=== PATIENT | male | born 1965 | race Caucasian/White ===

== ENCOUNTER 2021-09-13 10:23 | Inpatient (IN) | payer BC ==
[2021-09-13] MEDS ORDERED: ACETAMINOPHEN TAB 500 MG TAB PO STA (11:32)
[2021-09-13] MEDS ORDERED: KETOROLAC 15 MG/ML 1 ML VIAL IVP STA (11:32)
[2021-09-13] MEDS ORDERED: SODIUM CHLORIDE 0.9% 500 ML 500 ML IV STA (11:33)
[2021-09-13 12:23] LABS: Basophils # (A) 0.1 k/uL (0-0.2); Basophils % (A) 0 %; Eosinophils # (A) 0.1 k/uL (0-0.7); Eosinophils % (A) 1 %; HCT 52.7 % (39.0-53.0); Lymphocytes % (A) 5 %; MCH 28.2 pg (25.0-35.0); MCHC 32.2 g/dL (31.0-37.0); MCV 87.5 fL (80.0-100.0); Mean Platelet Volume 9.3; Monocytes # (A) 1.1 k/uL (0-1.0); Monocytes % (A) 6 %; Neutrophils # (A) 16.4 k/uL (1.3-7.7); Neutrophils % (A) 87 %; Platelet Count 199 k/uL (150-450); RBC 6.02 m/uL (4.30-5.90); RDW 12.9 % (11.5-15.5); WBC 18.8 k/uL (3.8-10.6)
[2021-09-13 12:43] LABS: ALT 13 U/L (4-49); AST 24 U/L (17-59); African American GFR (CKD) >90 (>60 ml/min/1.73 sqM); Albumin 4.1 g/dL (3.5-5.0); Alkaline Phosphatase 95 U/L (38-126); Anion Gap 19 mmol/L; Blood Urea Nitrogen 25 mg/dL (9-20); Calcium 9.5 mg/dL (8.4-10.2); Carbon Dioxide 14 mmol/L (22-30); Chloride 100 mmol/L (98-107); Glucose 260 mg/dL (74-99); Non-African American GFR(CKD) >90 (>60 ml/min/1.73 sqM); Potassium 4.9 mmol/L (3.5-5.1); Sodium 133 mmol/L (137-145); Total Bilirubin 0.7 mg/dL (0.2-1.3); Total Protein 7.7 g/dL (6.3-8.2)
[2021-09-13] MEDS ORDERED: VANCOMYCIN IV PER PHARMACY 1 EACH MISC MISCELLANE PRN (12:48)
[2021-09-13] MEDS ORDERED: cefTRIAXone IN SWFI 1,000 MG/10 ML SYRINGE IVP STA (12:48)
--- NOTE | 2021-09-13 12:48 | ED ---
Wound/Laceration HPI - General Chief Complaint: Wound/Laceration Stated Complaint: lt foot diabetic infection Time Seen by Provider: 09/13/21 11:11 Source: patient, RN notes reviewed Mode of arrival: wheelchair Limitations: no limitations, physical limitation - History of Present Illness Initial Comments: Patient is a 56-year-old male with history of diabetes, presenting to the emergency Department with complaints of a worsening wound on his left foot. He states about a week ago he noticed a small blood blister on the lateral aspect of his left foot, it did start to drain, he did not think anything about this. He does have diabetic neuropathy so usually cannot feel much in his feet. He states yesterday he noticed some pain increasing of the left foot, he went to urgent care who did start him on 2 separate antibiotics. They told him if his symptoms worsen to go into the ER. Patient states he woke up this morning feeling way worse, fatigue, felt feverish and the pain has been increasing in his left foot and he is now feeling pain all the way up his left leg. They did do an x-ray yesterday at urgent care, no fractures, no signs of osteomyelitis. Patient states he's never had an infection like this before. Patient does admit to some mild nausea but no vomiting, no chest pain or short of breath. He did not take anything for the fever today. He has no further complaints. Patient initial temperature is 98.1 however upon recheck it was 99.6. His pulse was 128, rest of vitals normal. - Related Data Allergies Allergy/AdvReac Type Severity Reaction Status Date / Time No Known Allergies Allergy Verified 09/13/21 11:08 Review of Systems ROS Statement: Those systems with pertinent positive or pertinent negative responses have been documented in the HPI. ROS Other: All systems not noted in ROS Statement are negative. Past Medical History Past Medical History: Diabetes Mellitus Additional Past Medical History / Comment(s): buldging disc to back History of Any Multi-Drug Resistant Organisms: None Reported Past Surgical History: No Surgical Hx Reported Past Psychological History: No Psychological Hx Reported Smoking Status: Never smoker Past Alcohol Use History: None Reported Past Drug Use History: None Reported General Exam - General Exam Comments Initial Comments: GENERAL: Patient is well-developed and well-nourished. Patient is nontoxic and in no acute distress. HEAD: Atraumatic, normocephalic. EYES: Pupils equal round and reactive to light, extraocular movements intact, sclera anicteric, conjunctiva are normal. Eyelids were unremarkable. ENT: Nares patent, oropharynx clear without exudates. Moist mucous membranes. NECK: Normal range of motion, supple without lymphadenopathy or JVD. LUNGS: Unlabored respirations. Breath sounds clear to auscultation bilaterally and equal. No wheezes rales or rhonchi. HEART: Tachycardia rate and rhythm without murmurs, rubs or gallops. ABDOMEN: Soft, nontender, normoactive bowel sounds. No guarding, no rebound. No masses appreciated. MUSCULOSKELETAL: Patient has 60 pain with palpation of the left foot and into the left ankle. He does have adequate range of motion. He is neurovascular intact of bilateral lower extremities. He has 2+ pitting edema on the left leg compared to the right. No clubbing or cyanosis. NEUROLOGICAL: Patient is alert and oriented x 3. Motor and sensory are also intact. Cranial nerves II through XII grossly intact. Symmetrical smile. Normal speech, normal gait. PSYCH: Normal mood, normal affect. SKIN: Warm, Dry, normal turgor. Patient has an approximate 1 cm ulcer on the lateral left foot, there is a strong odor present, he has spreading erythema of the left foot up to the left ankle and into the left lower leg. He does have 2+ pitting edema. Limitations: physical limitation Course Vital Signs 09/13/21 11:05 Temperature 98.1 F Pulse Rate 128 H Respiratory 18 Rate Blood Pressure 144/83 O2 Sat by Pulse 95 Oximetry Medical Decision Making - Medical Decision Making Patient is a 56-year-old male with history of diabetes presenting with a worsening wound on his left foot for the past week. Yesterday he did go to urgent care, x-ray reveals no fracture, no signs of osteomyelitis. He did arrive slightly febrile and tachycardia today at 128. Patient has significant cellulitis of the left foot extending up to the left ankle and left lower leg. He does have swelling compared to the right leg, his white count is 18.8, crp 23. Patient will be admitted for cellulitis, sepsis. Blood cultures are pe nding, did start him on Rocephin and vancomycin. Patient accepted by Dr. Patterson, with consult to ID. Case discussed with Dr. Yancey. - Lab Data Result diagrams: 09/13/21 12:06 09/13/21 12:06 Lab Results 09/13/21 09/13/21 Range/Units 12:06 12:06 WBC 18.8 H (3.8-10.6) k/uL RBC 6.02 H (4.30-5.90) m/uL Hgb 17.0 (13.0-17.5) gm/dL Hct 52.7 (39.0-53.0) % MCV 87.5 (80.0-100.0) fL MCH 28.2 (25.0-35.0) pg MCHC 32.2 (31.0-37.0) g/dL RDW 12.9 (11.5-15.5) % Plt Count 199 (150-450) k/uL MPV 9.3 Neutrophils % 87 % Lymphocytes % 5 % Monocytes % 6 % Eosinophils % 1 % Basophils % 0 % Neutrophils # 16.4 H (1.3-7.7) k/uL Lymphocytes # 1.0 (1.0-4.8) k/uL Monocytes # 1.1 H (0-1.0) k/uL Eosinophils # 0.1 (0-0.7) k/uL Basophils # 0.1 (0-0.2) k/uL Sodium 133 L (137-145) mmol/L Potassium 4.9 (3.5-5.1) mmol/L Chloride 100 (98-107) mmol/L Carbon Dioxide 14 L (22-30) mmol/L Anion Gap 19 mmol/L BUN 25 H (9-20) mg/dL Creatinine 0.87 (0.66-1.25) mg/dL Est GFR (CKD-EPI)AfAm >90 (>60 ml/min/1.73 sqM) Est GFR (CKD-EPI)NonAf >90 (>60 ml/min/1.73 sqM) Glucose 260 H (74-99) mg/dL Calcium 9.5 (8.4-10.2) mg/dL Total Bilirubin 0.7 (0.2-1.3) mg/dL AST 24 (17-59) U/L ALT 13 (4-49) U/L Alkaline Phosphatase 95 (38-126) U/L C-Reactive Protein 23.8 H (<1.0) mg/dL Total Protein 7.7 (6.3-8.2) g/dL Albumin 4.1 (3.5-5.0) g/dL Disposition Clinical Impression: Cellulitis of left leg, Ulcer of left foot, Sepsis Disposition: ADMITTED IP TO THIS HOSP Condition: Stable Referrals: Fidencio Sepulveda DO [Primary Care Provider] - 1-2 days Decision Date: 09/13/21 Decision Time: 13:16
[2021-09-13 12:56] LABS: C Reactive Protein 23.8 mg/dL (<1.0)
[2021-09-13] MEDS ORDERED: NALOXONE 0.4 MG/ML 1 ML VIAL IV PRN ×2 (13:12→15:06)
[2021-09-13] MEDS ORDERED: KETOROLAC 15 MG/ML 1 ML VIAL IVP PRN (13:12)
[2021-09-13] MEDS ORDERED: ACETAMINOPHEN TAB 325 MG TAB PO PRN (13:12)
[2021-09-13] MEDS ORDERED: IBUPROFEN 400 MG TAB PO PRN (13:12)
[2021-09-13] MEDS ORDERED: ONDANSETRON 4 MG/2 ML VIAL IVP PRN (13:12)
[2021-09-13] MEDS ORDERED: VANCOMYCIN 1,750 MG in SODIUM CHLORIDE 0.9% 500 ML 500 ML IVPB ONE (13:30)
[2021-09-13] MEDS: MORPHINE SULFATE 4 MG/ML SYRINGE IV PRN ×2 (13:44→19:48)
[2021-09-13] MEDS: SODIUM CHLORIDE 0.9% 1,000 ML IV SCH ×2 (14:32→19:56)
[2021-09-13 15:04] LABS: Erythrocyte Sedimentation Rate 53 mm/hr (0-15)
[2021-09-13] MEDS ORDERED: INDOMETHACIN 25 MG CAP PO PRN (15:59)
[2021-09-13] MEDS ORDERED: LIDOCAINE 5% PATCH TOPICAL PRN (15:59)
[2021-09-13] MEDS: PREGABALIN 75 MG CAP PO SCH ×2 (17:11→21:43)
[2021-09-13 17:15] LABS: Glucose,Whole Blood 161 mg/dL (75-99)
[2021-09-13] MEDS: INSULIN ASPART (NovoLOG) 100 UNIT/ML VIAL SQ SCH ×2 (17:55→21:43)
[2021-09-13] MEDS: metFORMIN 500 MG TAB PO SCH (19:55)
[2021-09-13 20:26] LABS: Glucose,Whole Blood 267 mg/dL (75-99)
--- NOTE | 2021-09-13 20:48 | P.HPIM ---
History of Present Illness H&P Date: 09/13/21 Chief Complaint: Left foot abscess This is a 56-year-old patient who follows with Dr. Sepulveda. No dysuria diabetes, herniated L3-L4 disc, peripheral neuropathy. Patient with tenderness ago when he got out of the shower he noted a blood blister. He felt it could be from 8 help somebody move furniture. Subsequently drained. 4 days ago he put on a[employer]isual [employer] shopping. And suddenly he developed severe pain in the foot. He decided to come into the urgent care yesterday. Was given, couple antibiotics. He took it for about 2 doses. X-ray done in the urgent care did not reveal any bone involvement. He started having chills. Finding decided to come in. He has significantly decreased sensation in the foot. Pain has been present in the foot now for last few days. Review of systems: GEN.: Chills EYES: None HEENT: None NECK: None RESPIRATORY: None CARDIOVASCULAR: None GASTROINTESTINAL: None GENITOURINARY: None MUSCULOSKELETAL: As above LYMPHATICS: None HEMATOLOGICAL: None PSYCHIATRY: None NEUROLOGICAL: Numbness in the feet Past medical history to include: Diabetes, peripheral neuropathy, L3-L4 herniated disc Social history: Lives alone with 2 daughters. Does not smoke or drink alcohol. Family history: Reviewed, noncontributory to presentation Physical examination: VITAL SIGNS: 98.2, 92, 16, 112 x 56, 93% on room air GENERAL: BMI 31.2, laying in bed, awake comfortable. EYES: Pupils equal. Conjunctiva normal. HEENT: External appearance of nose and ears normal, oral cavity grossly normal. NECK: JVD not raised; masses not palpable. HEART: First and second heart sounds are normal; no edema. LUNGS: Respiratory rate normal; clear to auscultation. ABDOMEN: Soft, nontender, liver spleen not palpable, no masses palpable. PSYCH: Alert and oriented x3; mood and affect normal. NEUROLOGICAL: Cranial nerves grossly intact; no facial asymmetry, power grossly intact. Decreased sensation distally. EXTREMITIES: Left foot swollen on the lateral side. Has a callus. Blood blister on the top of the foot. Dorsalis pedis palpable LYMPHATICS: No lymph nodes palpable in the axilla and neck INVESTIGATIONS, reviewed in the clinical context: White count 18.8 hemoglobin 17 platelets 199 sodium 133 potassium 4.9. 25 creatinine 0.87 bicarbonate 14 blood glucose 260 CRP 23.8 Coronavirus [PCR]: Not detected Assessment and plan: -Left foot abscess likely from infected callus, secondary to diabetes. Patient has palpable dorsalis pedis. Vascular Dr. Treadwell has been consulted. For I&D. I ID consulted. On IV vancomycin -Diabetes mellitus type 2, uncontrolled with hypoglycemia Oral hypoglycemic resume. Follow Accu-Cheks. -Diabetic peripheral neuropathy -Chronic lumbar L3-L4 herniated disc Pain control as needed Home medications resumed. Follow Accu-Cheks. IV vancomycin. Consultation to vascular and ID.. Lovenox for DVT prophylaxis. Patient will be nothing by mouth after midnight for I&D Given the complexity and severity of patient's condition expect the patient to be in the hospital at least for 2 overnights Past Medical History Past Medical History: Diabetes Mellitus Additional Past Medical History / Comment(s): L3-4-5 Bulging discs, neuropathy History of Any Multi-Drug Resistant Organisms: None Reported Past Surgical History: No Surgical Hx Reported Past Psychological History: No Psychological Hx Reported Smoking Status: Never smoker Past Alcohol Use History: None Reported Past Drug Use History: None Reported Medications and Allergies Home Medications Medication Instructions Recorded Confirmed Type Amoxic-Pot Clav 875-125Mg 1 tab PO BID 09/13/21 09/13/21 History [Augmentin 875-125] Ciprofloxacin HCl [Cipro] 500 mg PO BID 09/13/21 09/13/21 History Empagliflozin [Jardiance] 10 mg PO DAILY 09/13/21 09/13/21 History HYDROcodone/APAP 10-325MG [[place] 1 tab PO DAILY PRN 09/13/21 09/13/21 History 10-325] Indomethacin [Indocin] 50 mg PO BID PRN 09/13/21 09/13/21 History Lidocaine 5% Patch [Lidoderm] 2 patch TRANSDERM DAILY PRN 09/13/21 09/13/21 History Lisinopril [Prinivil] 10 mg PO DAILY 09/13/21 09/13/21 History Pregabalin [Lyrica] 150 mg PO TID 09/13/21 09/13/21 History metFORMIN HCL [Glucophage] 1,000 mg PO BID 09/13/21 09/13/21 History sitaGLIPtin [Januvia] 100 mg PO DAILY 09/13/21 09/13/21 History traMADol HCL 100 mg PO TID 09/13/21 09/13/21 History Allergies Allergy/AdvReac Type Severity Reaction Status Date / Time No Known Allergies Allergy Verified 09/13/21 13:29 Physical Exam Vitals: Vital Signs Temp Pulse Pulse Resp BP BP Pulse Ox 09/13/21 20:00 98.1 F 92 16 112/66 93 L 09/13/21 16:45 98 18 09/13/21 16:08 98.2 F 98 18 122/73 97 09/13/21 14:21 98.2 F 98 18 122/73 97 09/13/21 13:17 99.6 F 09/13/21 11:05 98.1 F 128 H 18 144/83 95 Intake and Output 09/13/21 09/13/21 09/13/21 06:59 14:59 22:59 Intake Total 240 Balance 240 Intake: Oral 240 Other: Voiding Method Toilet # Voids 3 Weight 104.326 kg Results CBC & Chem 7: 09/13/21 12:06 09/13/21 12:06 Labs: Abnormal Lab Results - Last 24 Hours (Table) 09/13/21 09/13/21 09/13/21 Range/Units 12:06 12:06 17:13 WBC 18.8 H (3.8-10.6) k/uL RBC 6.02 H (4.30-5.90) m/uL Neutrophils # 16.4 H (1.3-7.7) k/uL Monocytes # 1.1 H (0-1.0) k/uL ESR 53 H (0-15) mm/hr Sodium 133 L (137-145) mmol/L Carbon Dioxide 14 L (22-30) mmol/L BUN 25 H (9-20) mg/dL Glucose 260 H (74-99) mg/dL POC Glucose (mg/dL) 161 H (75-99) mg/dL C-Reactive Protein 23.8 H (<1.0) mg/dL 09/13/21 Range/Units 20:25 WBC (3.8-10.6) k/uL RBC (4.30-5.90) m/uL Neutrophils # (1.3-7.7) k/uL Monocytes # (0-1.0) k/uL ESR (0-15) mm/hr Sodium (137-145) mmol/L Carbon Dioxide (22-30) mmol/L BUN (9-20) mg/dL Glucose (74-99) mg/dL POC Glucose (mg/dL) 267 H (75-99) mg/dL C-Reactive Protein (<1.0) mg/dL Thrombosis Risk Factor Assmnt - Choose All That Apply Each Factor Represents 1 point: Age 41-60 years Thrombosis Risk Factor Assessment Total Risk Factor Score: 1 Thrombosis Risk Factor Assessment Level: Low Risk
[2021-09-13] MEDS: VANCOMYCIN 1,750 MG in SODIUM CHLORIDE 0.9% 500 ML 500 ML IVPB SCH (21:40)
[2021-09-13] MEDS: ENOXAPARIN 40 MG/0.4 ML SYRINGE SQ SCH (21:42)
[2021-09-13] MEDS: traMADol 50 MG TAB PO SCH (21:42)
[2021-09-13] MEDS: SODIUM BICARBONATE TAB 650 MG TAB PO SCH ×2 (21:43→21:46)
[2021-09-14] MEDS: AMPICILLIN-SULBACTAM 3 GM in SODIUM CHLORIDE 0.9% 100 ML IVPB SCH ×5 (00:25→23:32)
[2021-09-14 04:31] LABS: Basophils # (A) 0.1 k/uL (0-0.2); Basophils % (A) 0 %; Eosinophils # (A) 0.1 k/uL (0-0.7); Eosinophils % (A) 0 %; HCT 48.8 % (39.0-53.0); HGB 15.8 gm/dL (13.0-17.5); Lymphocytes # (A) 1.9 k/uL (1.0-4.8); Lymphocytes % (A) 11 %; MCHC 32.4 g/dL (31.0-37.0); MCV 86.5 fL (80.0-100.0); Mean Platelet Volume 8.7; Monocytes % (A) 6 %; Neutrophils # (A) 14.1 k/uL (1.3-7.7); Neutrophils % (A) 81 %; Platelet Count 223 k/uL (150-450); RBC 5.64 m/uL (4.30-5.90); RDW 13.3 % (11.5-15.5); WBC 17.4 k/uL (3.8-10.6)
[2021-09-14 04:45] LABS: African American GFR (CKD) >90 (>60 ml/min/1.73 sqM); Anion Gap 11 mmol/L; Blood Urea Nitrogen 26 mg/dL (9-20); Calcium 8.9 mg/dL (8.4-10.2); Carbon Dioxide 22 mmol/L (22-30); Chloride 104 mmol/L (98-107); Glucose 143 mg/dL (74-99); Non-African American GFR(CKD) >90 (>60 ml/min/1.73 sqM); Potassium 4.9 mmol/L (3.5-5.1); Sodium 137 mmol/L (137-145)
[2021-09-14] MEDS: SODIUM CHLORIDE 0.9% 1,000 ML IV SCH ×3 (05:58→21:39)
--- NOTE | 2021-09-14 06:44 | P.GSCN ---
History of Present Illness History of present illness: 56-year-old gentleman who came to through the emergency room with history of marked swelling and redness and painful left foot with blister formation on the dorsal aspect for the past few days which is getting worse. Patient has a callus on the plantar aspect of the foot with fluctuation and tenderness and there are blister formation noted on the dorsal aspect of the foot and also involving the fifth toe according to patient this is progressing since yesterday patient has a discomfort and pain in the left foot. Medical history history of diabetes with neuropathy and also history of chronic back pain. On examination Neck examination neck is supple no bruit appreciated Chest clear first and second sound normal Abdomen soft nontender Vascular brachial radial femoral pulses are present dorsal pedis is palpable posterior tibial is present patient has a marked tenderness and redness noted of the left foot involving the plantar plantar and dorsal suspect the foot with fluctuation patient has a callus formation noted most selective got infected plan is excision of the callus and draining of the abscess and possible fifth toe amputation discussed in detail with the patient patient are understand and we'll proceed Past Medical History Past Medical History: Diabetes Mellitus Additional Past Medical History / Comment(s): L3-4-5 Bulging discs, neuropathy History of Any Multi-Drug Resistant Organisms: None Reported Past Surgical History: No Surgical Hx Reported Past Psychological History: No Psychological Hx Reported Smoking Status: Never smoker Past Alcohol Use History: None Reported Past Drug Use History: None Reported Medications and Allergies Home Medications Medication Instructions Recorded Confirmed Type Amoxic-Pot Clav 875-125Mg 1 tab PO BID 09/13/21 09/13/21 History [Augmentin 875-125] Ciprofloxacin HCl [Cipro] 500 mg PO BID 09/13/21 09/13/21 History Empagliflozin [Jardiance] 10 mg PO DAILY 09/13/21 09/13/21 History HYDROcodone/APAP 10-325MG [[place] 1 tab PO DAILY PRN 09/13/21 09/13/21 History 10-325] Indomethacin [Indocin] 50 mg PO BID PRN 09/13/21 09/13/21 History Lidocaine 5% Patch [Lidoderm] 2 patch TRANSDERM DAILY PRN 09/13/21 09/13/21 History Lisinopril [Prinivil] 10 mg PO DAILY 09/13/21 09/13/21 History Pregabalin [Lyrica] 150 mg PO TID 09/13/21 09/13/21 History metFORMIN HCL [Glucophage] 1,000 mg PO BID 09/13/21 09/13/21 History sitaGLIPtin [Januvia] 100 mg PO DAILY 09/13/21 09/13/21 History traMADol HCL 100 mg PO TID 09/13/21 09/13/21 History Allergies Allergy/AdvReac Type Severity Reaction Status Date / Time No Known Allergies Allergy Verified 09/13/21 13:29 Surgical - Exam Vital Signs Temp Pulse Resp BP Pulse Ox 98.1 F 128 H 18 144/83 95 09/13/21 11:05 09/13/21 11:05 09/13/21 11:05 09/13/21 11:05 09/13/21 11:05 Results - Labs 09/14/21 04:08 09/14/21 04:08 Abnormal Lab Results - Last 24 Hours (Table) 09/13/21 09/13/21 09/13/21 Range/Units 12:06 12:06 17:13 WBC 18.8 H (3.8-10.6) k/uL RBC 6.02 H (4.30-5.90) m/uL Neutrophils # 16.4 H (1.3-7.7) k/uL Monocytes # 1.1 H (0-1.0) k/uL ESR 53 H (0-15) mm/hr Sodium 133 L (137-145) mmol/L Carbon Dioxide 14 L (22-30) mmol/L BUN 25 H (9-20) mg/dL Glucose 260 H (74-99) mg/dL POC Glucose (mg/dL) 161 H (75-99) mg/dL C-Reactive Protein 23.8 H (<1.0) mg/dL 09/13/21 09/14/21 09/14/21 Range/Units 20:25 04:08 04:08 WBC 17.4 H (3.8-10.6) k/uL RBC (4.30-5.90) m/uL Neutrophils # 14.1 H (1.3-7.7) k/uL Monocytes # (0-1.0) k/uL ESR (0-15) mm/hr Sodium (137-145) mmol/L Carbon Dioxide (22-30) mmol/L BUN 26 H (9-20) mg/dL Glucose 143 H (74-99) mg/dL POC Glucose (mg/dL) 267 H (75-99) mg/dL C-Reactive Protein (<1.0) mg/dL Diabetes panel 09/13/21 09/14/21 Range/Units 12:06 04:08 Sodium 133 L 137 (137-145) mmol/L Potassium 4.9 4.9 (3.5-5.1) mmol/L Chloride 100 104 (98-107) mmol/L Carbon Dioxide 14 L 22 (22-30) mmol/L BUN 25 H 26 H (9-20) mg/dL Creatinine 0.87 0.79 (0.66-1.25) mg/dL Glucose 260 H 143 H (74-99) mg/dL Calcium 9.5 8.9 (8.4-10.2) mg/dL AST 24 (17-59) U/L ALT 13 (4-49) U/L Alkaline Phosphatase 95 (38-126) U/L Total Protein 7.7 (6.3-8.2) g/dL Albumin 4.1 (3.5-5.0) g/dL Calcium panel 09/13/21 09/14/21 Range/Units 12:06 04:08 Calcium 9.5 8.9 (8.4-10.2) mg/dL Albumin 4.1 (3.5-5.0) g/dL Pituitary panel 09/13/21 09/14/21 Range/Units 12:06 04:08 Sodium 133 L 137 (137-145) mmol/L Potassium 4.9 4.9 (3.5-5.1) mmol/L Chloride 100 104 (98-107) mmol/L Carbon Dioxide 14 L 22 (22-30) mmol/L BUN 25 H 26 H (9-20) mg/dL Creatinine 0.87 0.79 (0.66-1.25) mg/dL Glucose 260 H 143 H (74-99) mg/dL Calcium 9.5 8.9 (8.4-10.2) mg/dL Adrenal panel 09/13/21 09/14/21 Range/Units 12:06 04:08 Sodium 133 L 137 (137-145) mmol/L Potassium 4.9 4.9 (3.5-5.1) mmol/L Chloride 100 104 (98-107) mmol/L Carbon Dioxide 14 L 22 (22-30) mmol/L BUN 25 H 26 H (9-20) mg/dL Creatinine 0.87 0.79 (0.66-1.25) mg/dL Glucose 260 H 143 H (74-99) mg/dL Calcium 9.5 8.9 (8.4-10.2) mg/dL Total Bilirubin 0.7 (0.2-1.3) mg/dL AST 24 (17-59) U/L ALT 13 (4-49) U/L Alkaline Phosphatase 95 (38-126) U/L Total Protein 7.7 (6.3-8.2) g/dL Albumin 4.1 (3.5-5.0) g/dL
--- NOTE | 2021-09-14 07:19 | P.CONS ---
History of Present Illness - Reason for Consult Consult date: 09/13/21 left foot abscess Requesting physician: Tyrese Patterson - Chief Complaint left foot swelling and redness x few days - History of Present Illness History of present illness : Patient is 56-year-old male with a past medical history significant for diabetes mellitus presenting to the ER for evaluation of left foot pain swelling and redness apparently about a week ago the patient noticed a small blood blister on the lateral aspect of his left foot which subsequently started to drain and the patient did not think anything serious about it the patient did have underlying diabetic neuropathy he did not have significant swelling in the foot however yesterday the patient noticed to have increasing pain to the left foot area describing to be more of a sharp and pressure-like intensity of 5-6 out of 10 and no radiation patient was seen in the urgent care yesterday the patient started on 2 different antibiotics however the patient noticed to have worsening of swelling redness to the left foot and there is concern the patient and the patient presented to the ER on presentation to the hospital patient did have low-grade fever of 99.6 degrees form height patient did have white count of 15.8 with a left shift kidney function was normal khan PCR was negative no x-rays were done patient was started on vancomycin was admitted to the hospital infectious disease was consulted for further management of antibiotic therapy Review of system: CONSTITUTIONAL: Positive for weakness along with the fever. EYES: No complaint. ENT: No complaint. RESPIRATORY: No complaint. CARDIOVASCULAR: No complaint. GENITOURINARY: No complaint. GASTROINTESTINAL: No complaint. MUSCULOSKELETAL: As per history of present illness. INTEGUMENTARY: No complaint. PSYCHOLOGIC: No complaint. ENDOCRINE: No complaint. NEUROLOGIC: No complaint. Past medical history : Reviewed, documented below Past surgical history : Reviewed, documented below Social history: Reviewed, documented below Medications: Reviewed, as documented below EXAMINATION: Vital sigans= Reviewed and documented below GENERAL DESCRIPTION: Middle-aged male lying in bed, no distress. No tachypnea or accessory muscle of respiration use. HEENT: Shows Pallor , no scleral icterus. Oral mucous membrane is dry. NECK: Trachea central, no thyromegaly. LUNGS: Unlabored breathing. Clear to auscultation anteriorly. No wheeze or crackle. HEART: S1, S2, regular rate and rhythm. ABDOMEN: Soft, no tenderness , guarding or rigidity EXTREMITIES: Left foot dorsum area did have a swelling and redness and a small p ustule area on the plantar aspect of the left foot. SKIN: No rash, no masses palpable. NEUROLOGICAL: The patient is awake, alert, oriented x3, mood and affect normal. LABS AND RADIOLOGY: Reviewed results see below Assessment : Patient presented to hospital with extensive left diabetic foot infection failing to respond to outpatient oral biotic therapy concern for possible infected callus on the plantar aspect of the left foot with secondary cellulitis of the left foot area will cover for the polymicrobial arabella usually associated with this type of infection Plan: 1-vascular surgery consult for drainage of the abscess and deep culture both aerobic and anaerobic 2-vancomycin pharmacy to dose with a target trough of 15 while watching kidney function and Vanco trough closely. 3-Unasyn 3 g every 6 hours We will follow on clinical condition and cultures to further adjust medication if needed Thank you for this consultation we will follow the patient along with you Past Medical History Past Medical History: Diabetes Mellitus Additional Past Medical History / Comment(s): L3-4-5 Bulging discs, neuropathy History of Any Multi-Drug Resistant Organisms: None Reported Past Surgical History: No Surgical Hx Reported Past Psychological History: No Psychological Hx Reported Smoking Status: Never smoker Past Alcohol Use History: None Reported Past Drug Use History: None Reported Medications and Allergies Home Medications Medication Instructions Recorded Confirmed Type Amoxic-Pot Clav 875-125Mg 1 tab PO BID 09/13/21 09/13/21 History [Augmentin 875-125] Ciprofloxacin HCl [Cipro] 500 mg PO BID 09/13/21 09/13/21 History Empagliflozin [Jardiance] 10 mg PO DAILY 09/13/21 09/13/21 History HYDROcodone/APAP 10-325MG [[place] 1 tab PO DAILY PRN 09/13/21 09/13/21 History 10-325] Indomethacin [Indocin] 50 mg PO BID PRN 09/13/21 09/13/21 History Lidocaine 5% Patch [Lidoderm] 2 patch TRANSDERM DAILY PRN 09/13/21 09/13/21 History Lisinopril [Prinivil] 10 mg PO DAILY 09/13/21 09/13/21 History Pregabalin [Lyrica] 150 mg PO TID 09/13/21 09/13/21 History metFORMIN HCL [Glucophage] 1,000 mg PO BID 09/13/21 09/13/21 History sitaGLIPtin [Januvia] 100 mg PO DAILY 09/13/21 09/13/21 History traMADol HCL 100 mg PO TID 09/13/21 09/13/21 History Allergies Allergy/AdvReac Type Severity Reaction Status Date / Time No Known Allergies Allergy Verified 09/13/21 13:29 Physical Exam Vitals: Vital Signs Temp Pulse Pulse Resp BP BP Pulse Ox 09/13/21 16:08 98.2 F 98 18 122/73 97 09/13/21 14:21 98.2 F 98 18 122/73 97 09/13/21 13:17 99.6 F 09/13/21 11:05 98.1 F 128 H 18 144/83 95 Intake and Output 09/13/21 09/13/21 09/13/21 06:59 14:59 22:59 Other: Weight 104.326 kg Results CBC & Chem 7: 09/14/21 04:08 09/14/21 04:08 Labs: Abnormal Lab Results - Last 24 Hours (Table) 09/13/21 09/13/21 Range/Units 12:06 12:06 WBC 18.8 H (3.8-10.6) k/uL RBC 6.02 H (4.30-5.90) m/uL Neutrophils # 16.4 H (1.3-7.7) k/uL Monocytes # 1.1 H (0-1.0) k/uL ESR 53 H (0-15) mm/hr Sodium 133 L (137-145) mmol/L Carbon Dioxide 14 L (22-30) mmol/L BUN 25 H (9-20) mg/dL Glucose 260 H (74-99) mg/dL C-Reactive Protein 23.8 H (<1.0) mg/dL
[2021-09-14 07:28] LABS: Glucose,Whole Blood 107 mg/dL (75-99)
[2021-09-14] MEDS: INSULIN ASPART (NovoLOG) 100 UNIT/ML VIAL SQ SCH ×4 (07:54→21:38)
[2021-09-14] MEDS: NON FORMULARY DRUG (Empagliflozin [Jardiance] 10 MG Tablet) PO SCH (07:55)
[2021-09-14] MEDS: metFORMIN 500 MG TAB PO SCH ×2 (07:55→17:07)
[2021-09-14] MEDS: ENOXAPARIN 40 MG/0.4 ML SYRINGE SQ SCH (07:55)
[2021-09-14] MEDS: SODIUM BICARBONATE TAB 650 MG TAB PO SCH ×3 (07:56→21:35)
[2021-09-14] MEDS: LINAGLIPTIN 5 MG TABLET PO SCH (07:56)
[2021-09-14] MEDS: lisinopriL 10 MG TAB PO SCH (07:56)
[2021-09-14] MEDS: traMADol 50 MG TAB PO SCH ×3 (07:57→21:35)
[2021-09-14] MEDS: PREGABALIN 75 MG CAP PO SCH ×3 (07:57→21:35)
[2021-09-14] MEDS: VANCOMYCIN 1,750 MG in SODIUM CHLORIDE 0.9% 500 ML 500 ML IVPB SCH ×2 (07:59→20:01)
[2021-09-14 12:07] LABS: Glucose,Whole Blood 94 mg/dL (75-99)
--- NOTE | 2021-09-14 13:09 | P.PN ---
Progress Note - Text Progress Note Date: 09/14/21 Chief Complaint: Left foot abscess This is a 56-year-old patient who follows with Dr. Sepulveda. Chronic stable medical conditions include diabetes, herniated L3-L4 disc, peripheral neuropathy. 10 days ago when he got out of the shower he noted a blood blister. He felt it could be from then he help somebody move furniture. Subsequently drained. 4 days ago he put on tennis shoe and went shopping. And suddenly he developed severe pain in the left foot. He decided to come into the urgent care yesterday. Was given, couple antibiotics. He took it for about 2 doses. X-ray done in the urgent care did not reveal any bone involvement. He started having chills. Finding decided to come in. He has significantly decreased sensation in the feet. Pain has been present in the foot now for last few days. Admitted with acute cellulitis and abscess of the left foot. Possibly from infected callus. Started IV vancomycin. Vascular surgery and ID consulted. September 14: Resting in bed. Awaiting surgery this afternoon. Getting IV vancomycin. Review of systems: Was done for constitutional, cardiovascular, GI, pulmonary. relevant finding as above Active Medications Acetaminophen (Acetaminophen Tab 325 Mg Tab) 650 mg PO Q6HR PRN PRN Reason: Mild Pain or Fever > 100.5 Enoxaparin Sodium (Enoxaparin 40 Mg/0.4 Ml Syringe) 40 mg SQ DAILY [facility] Last Admin: 09/14/21 07:55 Dose: Not Given Documented by: Vancomycin HCl 1,750 mg/ (Sodium Chloride) 500 mls @ 167 mls/hr IVPB Q12HR [facility] Last Admin: 09/14/21 07:59 Dose: 167 mls/hr Documented by: Sodium Chloride (Saline 0.9%) 1,000 mls @ 130 mls/hr IV .Q7H42M [facility] Last Admin: 09/14/21 05:58 Dose: 130 mls/hr Documented by: Ampicillin Sodium/Sulbactam (Sodium 3 gm/ Sodium Chloride) 100 mls @ 200 mls/hr IVPB Q6HR [facility] Last Admin: 09/14/21 05:58 Dose: 200 mls/hr Documented by: Ibuprofen (Ibuprofen 400 Mg Tab) 400 mg PO Q6HR PRN PRN Reason: Mild Pain or Fever > 100.5 Indomethacin (Indomethacin 25 Mg Cap) 50 mg PO BID PRN PRN Reason: gout Insulin Aspart (Insulin Aspart (Novolog) 100 Unit/Ml Vial) 0 unit SQ ACHS [facility]; Protocol Last Admin: 09/14/21 07:54 Dose: Not Given Documented by: Ketorolac Tromethamine (Ketorolac 15 Mg/Ml 1 Ml Vial) 15 mg IVP Q6HR PRN PRN Reason: Moderate Pain Stop: 09/16/21 13:14 Linagliptin (Linagliptin 5 Mg Tablet) 5 mg PO DAILY [facility] Last Admin: 09/14/21 07:56 Dose: Not Given Documented by: Lisinopril (Lisinopril 10 Mg Tab) 10 mg PO DAILY [facility] Last Admin: 09/14/21 07:56 Dose: Not Given Documented by: Metformin HCl (Metformin 500 Mg Tab) 1,000 mg PO BID-W/MEALS [facility] Last Admin: 09/14/21 07:55 Dose: Not Given Documented by: Miscellaneous Information (Vancomycin Trough Due 1 Each Misc) 0 each MISCELLANE DIRECTED ONE Stop: 09/15/21 08:01 Morphine Sulfate (Morphine Sulfate 4 Mg/Ml Syringe) 4 mg IV Q4HR PRN PRN Reason: Severe Pain Last Admin: 09/13/21 19:48 Dose: 4 mg Documented by: Naloxone HCl (Naloxone 0.4 Mg/Ml 1 Ml Vial) 0.2 mg IV Q2M PRN PRN Reason: Opioid Reversal Non-Formulary Medication (Empagliflozin [Jardiance]) 10 mg PO DAILY [facility] Last Admin: 09/14/21 07:55 Dose: Not Given Documented by: Ondansetron HCl (Ondansetron 4 Mg/2 Ml Vial) 4 mg IVP Q8HR PRN PRN Reason: Nausea And Vomiting Pregabalin (Pregabalin 75 Mg Cap) 150 mg PO TID [facility] Last Admin: 09/14/21 07:57 Dose: 150 mg Documented by: Sodium Bicarbonate (Sodium Bicarbonate Tab 650 Mg Tab) 650 mg PO TID [facility] Last Admin: 09/14/21 07:56 Dose: Not Given Documented by: Tramadol HCl (Tramadol 50 Mg Tab) 100 mg PO TID [facility] Last Admin: 09/14/21 07:57 Dose: 100 mg Documented by: Past medical history to include: Diabetes, peripheral neuropathy, L3-L4 herniated disc Social history: Lives alone with 2 daughters. Does not smoke or drink alcohol. Family history: Reviewed, noncontributory to presentation Physical examination: VITAL SIGNS: 98.2, 92, 20, 154/79, 98% room air GENERAL: BMI 31.2, laying in bed, awake comfortable. EYES: Pupils equal. Conjunctiva normal. HEENT: External appearance of nose and ears normal, oral cavity grossly normal. NECK: JVD not raised; masses not palpable. HEART: First and second heart sounds are normal; no edema. LUNGS: Respiratory rate normal; clear to auscultation. ABDOMEN: Soft, nontender, liver spleen not palpable, no masses palpable. PSYCH: Alert and oriented x3; mood and affect normal. NEUROLOGICAL: Cranial nerves grossly intact; no facial asymmetry, power grossly intact. Decreased sensation distally. EXTREMITIES: Left foot swollen on the lateral side. Has a callus. Blood blister on the top of the foot. Dorsalis pedis palpable INVESTIGATIONS, reviewed in the clinical context: September 14: White count 13.4 hemoglobin 15.8 potassium 4.9 creatinine 0.76 White count 18.8 hemoglobin 17 platelets 199 sodium 133 potassium 4.9. 25 creatinine 0.87 bicarbonate 14 blood glucose 260 CRP 23.8 Coronavirus [PCR]: Not detected Assessment and plan: -Left foot abscess likely from infected callus, secondary to diabetes. Patient has palpable dorsalis pedis. Vascular Dr. Treadwell has been consulted. For I&D. I ID consulted. On IV vancomycin -Diabetes mellitus type 2, uncontrolled with hyperglycemia Oral hypoglycemic resume. Follow Accu-Cheks. -Diabetic peripheral neuropathy -Chronic lumbar L3-L4 herniated disc Pain control as needed Follow Accu-Cheks. IV vancomycin. Pending abscesses drainage today. Discussed with the patient.
[2021-09-14] MEDS ORDERED: ONDANSETRON 4 MG/2 ML VIAL IVP ONE ×2 (13:15→15:10)
[2021-09-14] MEDS ORDERED: IV FLUID CONTINUATION 1,000 ML IV ONE (13:15)
[2021-09-14] MEDS ORDERED: DEXAMETHASONE SOD PHOSPHATE 4 MG/ML 1 ML VIAL IVP ONE (13:16)
[2021-09-14 13:46] VITALS: BMI 31.1
[2021-09-14] MEDS ORDERED: PROPOFOL 10 MG/ML 20 ML VIAL IV ONE (13:55)
[2021-09-14] MEDS ORDERED: LIDOCAINE 1% INJ 10MG/ML (20 ML MDV) ONE (13:55)
[2021-09-14] MEDS ORDERED: MIDAZOLAM 2 MG/2 ML VIAL ONE (13:55)
[2021-09-14] MEDS ORDERED: fentaNYL (PF) 50 MCG/ML 2 ML AMP ONE (13:55)
--- NOTE | 2021-09-14 14:08 | CDI ---
Documentation Clarification Form Date: 09/14/2021 01:47:48 PM From: Makayla Payne RN CCDS Admit Date: 09/13/2021 01:13:00 PM Patient Name: Curt Foy Visit Number: [id number] Discharge Date: ATTENTION: The Clinical Documentation Specialists (CDI) and [facility] Coding Staff appreciate your assistance in clarifying documentation. Please respond to the clarification below the line at the bottom and electronically sign. The CDI & [facility] Coding staff will review the response and follow-up if needed. Please note: Queries are made part of the Legal Health Record. If you have any questions, please contact the author of this message via ITS. Dr. Tyrese Patterson Sepsis is documented ED note, 09/13, but is not noted in subsequent documentation. Clarification is requested. History/Risk Factors: 56-year-old male presents to the ED for severe pain in the left foot and chills. Medical history: DM and Neuropathy. Clinical Indicators: VSS: 09/13 B/P 144/83, HR 128, Temp 98.1 F, RR 18, Temp 95% room air. Labs: 09/13 Wbc 18.8, Neutrophils 16.4 Vascular Sx consult 09/14: Redness noted of the left foot involving the plantar and dorsal suspected the foot with fluctuation patient has a callus formation noted most selective got infected plan is to excision of the callus and draining of the abscess and possible fifth toe amputation. Treatment: 09/13 0.9ns 500cc bolus x , 09/13 0.9ns 130cchr , 09/13 Tylenol 1,000mg PO x 1, 09/13 Rocephin 1,000mg IVP x , 09/14 to current Ampicillin Sodium Sulbactam Sodium 3gm IVPB Q6HR, 09/13 Vancomycin 1,750mg IVPB x1, 09/13 to current Vancomycin 1,750mg IVPB Q12HR. Please clarify if the Sepsis is: [ ] Sepsis confirmed, remains under treatment [ ] Sepsis confirmed, resolved [ ] Sepsis ruled out [ ] Other condition, please specify [ ] Unable to determine No sepsis (Template Last Revised: January 2021) MTDD
[2021-09-14] MEDS ORDERED: LACTATED RINGERS 1,000 ML IV ONE (14:42)
[2021-09-14] MEDS ORDERED: HYDROmorphone 0.5 MG/0.5 ML SYRINGE IVP ONE ×2 (15:09→15:22)
--- NOTE | 2021-09-14 15:30 | OP ---
OPERATIVE REPORT PREOPERATIVE DIAGNOSE: Wet gangrene of the left foot involving the plantar aspect of the infected callus and involving the dorsal aspect of the foot and also involving the fifth toe. OPERATION: Ray amputation of the left fifth toe that includes mid metatarsal of the fifth toe and excision of all the devitalized tissue. This patient has a history of diabetes and he had an infected callus. He formed a blister on the dorsal aspect of the foot and the foot was tender. Fluctuation was noted on the plantar aspect of the foot. PROCEDURE DESCRIPTION: Under anesthesia an incision was made on the dorsal aspect of the foot at the mid fifth metatarsal level, deepened through skin, fat and fascia. Tendons were divided. Then the plantar incision was made and deepened through skin, fat and fascia. Plantar tendons were divided until we reached the mid metatarsal fifth bone. Using a bone cutter, we divided the fifth metatarsal bone. A lot of pus came out from the wound and also there was devitalized tissue on the plantar and dorsal aspect which was excised with a sharp knife. Specimen was sent for deep culture. Hemostasis was controlled by using 4-0 Prolene and the wound was copiously irrigated with hydrogen peroxide and saline. Hemostasis was well controlled. Aquacel Silver rope was applied to the wound. Dressing was applied. Patient tolerated the procedure well and was transferred to Recovery in satisfactory condition. MMODL / IJN: [id number] /
[2021-09-14 17:23] LABS: Glucose,Whole Blood 112 mg/dL (75-99)
[2021-09-14] MEDS: MORPHINE SULFATE 4 MG/ML SYRINGE IV PRN (20:00)
[2021-09-14 20:56] LABS: Glucose,Whole Blood 249 mg/dL (75-99)
--- NOTE | 2021-09-14 22:32 | PN ---
PROGRESS NOTE DATE OF SERVICE: 09/14/2021 REASON FOR FOLLOWUP: Left diabetic foot infection with wet gangrene and infected callus. INTERVAL HISTORY: The patient was taken to the OR and is status post left fifth toe amputation with deep cultures. The patient denies having any chest pain or shortness of breath or cough. No nausea, no vomiting. No abdominal pain or worsening pain to the left foot. PHYSICAL EXAMINATION: Blood pressure is 153/76, pulse of 95, temperature 97.5. He is 94% on room air. General description is a middle-aged male lying in bed in no distress. RESPIRATORY SYSTEM: Unlabored breathing. Clear to auscultation anteriorly. HEART: S1, S2. Regular rate and rhythm. ABDOMEN: Soft. No tenderness. Left foot has significant swelling and redness, especially involving the left fifth toe area. LABS: Hemoglobin is 15.9, white count 17.4, creatinine 0.7. Culture has been obtained which is currently pending. DIAGNOSTIC IMPRESSION AND PLAN: Patient with extensive left diabetic foot infection with wet gangrene to the left fifth toe, status post amputation. Cultures are being followed. Patient is covered with vancomycin and Unasyn. Continue with supportive care. MMODL / IJN: [id number] /
[2021-09-15] MEDS: SODIUM CHLORIDE 0.9% 1,000 ML IV SCH ×2 (02:35→23:47)
[2021-09-15] MEDS: AMPICILLIN-SULBACTAM 3 GM in SODIUM CHLORIDE 0.9% 100 ML IVPB SCH ×4 (05:40→23:43)
[2021-09-15 07:30] LABS: Glucose,Whole Blood 170 mg/dL (75-99)
[2021-09-15] MEDS ORDERED: VANCOMYCIN TROUGH DUE 1 EACH MISC MISCELLANE ONE (08:00)
[2021-09-15 08:06] LABS: African American GFR (CKD) >90 (>60 ml/min/1.73 sqM); Anion Gap 9 mmol/L; Blood Urea Nitrogen 25 mg/dL (9-20); Calcium 8.3 mg/dL (8.4-10.2); Carbon Dioxide 18 mmol/L (22-30); Chloride 107 mmol/L (98-107); Glucose 188 mg/dL (74-99); Non-African American GFR(CKD) >90 (>60 ml/min/1.73 sqM); Potassium 4.6 mmol/L (3.5-5.1); Sodium 134 mmol/L (137-145)
[2021-09-15] MEDS: INSULIN ASPART (NovoLOG) 100 UNIT/ML VIAL SQ SCH ×4 (08:24→20:53)
[2021-09-15] MEDS: lisinopriL 10 MG TAB PO SCH (08:25)
[2021-09-15] MEDS: traMADol 50 MG TAB PO SCH ×3 (08:25→20:53)
[2021-09-15] MEDS: metFORMIN 500 MG TAB PO SCH ×2 (08:25→16:54)
[2021-09-15] MEDS: ENOXAPARIN 40 MG/0.4 ML SYRINGE SQ SCH (08:25)
[2021-09-15] MEDS: LINAGLIPTIN 5 MG TABLET PO SCH (08:25)
[2021-09-15] MEDS: PREGABALIN 75 MG CAP PO SCH ×3 (08:25→20:52)
[2021-09-15] MEDS: NON FORMULARY DRUG (Empagliflozin [Jardiance] 10 MG Tablet) PO SCH (08:38)
[2021-09-15] MEDS: VANCOMYCIN 1,750 MG in SODIUM CHLORIDE 0.9% 500 ML 500 ML IVPB SCH (08:39)
[2021-09-15] MEDS: SODIUM BICARBONATE TAB 650 MG TAB PO SCH ×3 (10:00→20:53)
[2021-09-15 12:45] LABS: Glucose,Whole Blood 167 mg/dL (75-99)
--- NOTE | 2021-09-15 16:56 | PN ---
PROGRESS NOTE DATE OF SERVICE: 09/15/2021 REASON FOR FOLLOWUP: Left 5th toe wet gangrene diabetic foot infection. INTERVAL HISTORY: Patient is afebrile. The patient is status post left 5th toe amputation completed yesterday. Patient tolerated the procedure. The patient denies having any chest pain. No shortness of breath or cough. No vomiting. No abdominal pain. No diarrhea. PHYSICAL EXAMINATION: Blood pressure 126/76, pulse 78, temperature 98.2. He is 93% on room air. The patient is a middle-aged male lying in bed in no distress. Respiratory system: Unlabored breathing. Clear to auscultation anteriorly. Heart S1, S2. Regular rate and rhythm. Abdomen: Soft, no tenderness. The left foot is currently dressed. No obvious drainage on the dressing. LAB: Cultures came back as Streptococcus agalactiae. Creatinine 0.75. DIAGNOSTIC IMPRESSION AND PLAN: Patient with left diabetic foot infection with wet gangrene of the left 5th toe secondary to Streptococcus agalactiae. The patient to continue with Unasyn. Vancomycin will be discontinued. In view of extensive infection, will benefit from outpatient antibiotic therapy. Continue supportive care. MMODL / IJN: [id number] /
[2021-09-15] MEDS: MORPHINE SULFATE 4 MG/ML SYRINGE IV PRN (17:10)
[2021-09-15 17:48] LABS: Glucose,Whole Blood 194 mg/dL (75-99)
[2021-09-15 20:31] LABS: Glucose,Whole Blood 156 mg/dL (75-99)
--- NOTE | 2021-09-15 20:47 | P.PN ---
Progress Note - Text Progress Note Date: 09/15/21 Chief Complaint: Left foot abscess This is a 56-year-old patient who follows with Dr. Sepulveda. Chronic stable medical conditions include diabetes, herniated L3-L4 disc, peripheral neuropathy. 10 days ago when he got out of the shower he noted a blood blister. He felt it could be from then he help somebody move furniture. Subsequently drained. 4 days ago he put on tennis shoe and went shopping. And suddenly he developed severe pain in the left foot. He decided to come into the urgent care yesterday. Was given, couple antibiotics. He took it for about 2 doses. X-ray done in the urgent care did not reveal any bone involvement. He started having chills. Finding decided to come in. He has significantly decreased sensation in the feet. Pain has been present in the foot now for last few days. Admitted with acute cellulitis and abscess of the left foot. Possibly from infected callus. Started IV vancomycin. Vascular surgery and ID consulted. September 14: Resting in bed. Awaiting surgery this afternoon. Getting IV vancomycin. September 15: Patient underwent abscess removal of the left foot yesterday. Rather extensive. Patient also had to have left total removed and the metatarsal bone removed. Dressing in place. Discussed with the patient and his girlfriend present. Concerned that the girlfriend lives about 2 hours away. She also knee surgery. Patient lives his 16 and 19 daughter at home. Care was discussed at length. Including wound VAC. Home IV antibiotics. Cultures. Cultures positive for Streptococcus agalactiae group B. Review of systems: Was done for constitutional, cardiovascular, GI, pulmonary. relevant finding as above Active Medications Acetaminophen (Acetaminophen Tab 325 Mg Tab) 650 mg PO Q6HR PRN PRN Reason: Mild Pain or Fever > 100.5 Collagenase (Collagenase 250 Unit/Gm Ointment 30 Gm Tube) 1 applic TOPICAL DAILY [facility]; Protocol Enoxaparin Sodium (Enoxaparin 40 Mg/0.4 Ml Syringe) 40 mg SQ DAILY [facility] Last Admin: 09/15/21 08:25 Dose: 40 mg Documented by: Sodium Chloride (Saline 0.9%) 1,000 mls @ 130 mls/hr IV .Q7H42M [facility] Last Admin: 09/15/21 02:35 Dose: Not Given Documented by: Ampicillin Sodium/Sulbactam (Sodium 3 gm/ Sodium Chloride) 100 mls @ 200 mls/hr IVPB Q6HR [facility] Last Admin: 09/15/21 16:55 Dose: 200 mls/hr Documented by: Ibuprofen (Ibuprofen 400 Mg Tab) 400 mg PO Q6HR PRN PRN Reason: Mild Pain or Fever > 100.5 Indomethacin (Indomethacin 25 Mg Cap) 50 mg PO BID PRN PRN Reason: gout Insulin Aspart (Insulin Aspart (Novolog) 100 Unit/Ml Vial) 0 unit SQ ACHS [facility]; Protocol Last Admin: 09/15/21 18:38 Dose: 3 unit Documented by: Ketorolac Tromethamine (Ketorolac 15 Mg/Ml 1 Ml Vial) 15 mg IVP Q6HR PRN PRN Reason: Moderate Pain Stop: 09/16/21 13:14 Linagliptin (Linagliptin 5 Mg Tablet) 5 mg PO DAILY [facility] Last Admin: 09/15/21 08:25 Dose: 5 mg Documented by: Lisinopril (Lisinopril 10 Mg Tab) 10 mg PO DAILY [facility] Last Admin: 09/15/21 08:25 Dose: 10 mg Documented by: Metformin HCl (Metformin 500 Mg Tab) 1,000 mg PO BID-W/MEALS [facility] Last Admin: 09/15/21 16:54 Dose: 1,000 mg Documented by: Morphine Sulfate (Morphine Sulfate 4 Mg/Ml Syringe) 4 mg IV Q4HR PRN PRN Reason: Severe Pain Last Admin: 09/15/21 17:10 Dose: 4 mg Documented by: Naloxone HCl (Naloxone 0.4 Mg/Ml 1 Ml Vial) 0.2 mg IV Q2M PRN PRN Reason: Opioid Reversal Non-Formulary Medication (Empagliflozin [Jardiance]) 10 mg PO DAILY [facility] Last Admin: 09/15/21 08:38 Dose: Not Given Documented by: Ondansetron HCl (Ondansetron 4 Mg/2 Ml Vial) 4 mg IVP Q8HR PRN PRN Reason: Nausea And Vomiting Pregabalin (Pregabalin 75 Mg Cap) 150 mg PO TID [facility] Last Admin: 09/15/21 16:54 Dose: 150 mg Documented by: Sodium Bicarbonate (Sodium Bicarbonate Tab 650 Mg Tab) 650 mg PO TID [facility] Last Admin: 09/15/21 16:54 Dose: 650 mg Documented by: Tramadol HCl (Tramadol 50 Mg Tab) 100 mg PO TID [facility] Last Admin: 09/15/21 16:53 Dose: 100 mg Documented by: Past medical history to include: Diabetes, peripheral neuropathy, L3-L4 herniated disc Social history: Lives alone with 2 daughters. Does not smoke or drink alcohol. Family history: Reviewed, noncontributory to presentation Physical examination: VITAL SIGNS: 98.2, 78, 17, 126/76, 93% room air GENERAL: In standing in bed, awake, comfortable EYES: Pupils equal. Conjunctiva normal. NECK: JVD not raised; masses not palpable. HEART: First and second heart sounds are normal; no edema. LUNGS: Respiratory rate normal; clear to auscultation. ABDOMEN: Soft, nontender, liver spleen not palpable, no masses palpable. PSYCH: Alert and oriented x3; mood and affect normal. NEUROLOGICAL: Cranial nerves grossly intact; no facial asymmetry, power grossly intact. Decreased sensation distally. EXTREMITIES: Left 14 a dressing INVESTIGATIONS, reviewed in the clinical context: September 15: Potassium 4.6 BUN 25 crit 0.75. Accu-Cheks 170, 167 Wound culture growing Streptococcus agalactiae group B September 14: White count 13.4 hemoglobin 15.8 potassium 4.9 creatinine 0.76 White count 18.8 hemoglobin 17 platelets 199 sodium 133 potassium 4.9. 25 creatinine 0.87 bicarbonate 14 blood glucose 260 CRP 23.8 Coronavirus [PCR]: Not detected Assessment and plan: -Left foot abscess likely from infected callus, secondary to diabetes. Reamputation of the left fifth toe that includes right metatarsal of the fifth toe and excision of all the devitalized tissue. Abscess drained. Cultures posi tive for Streptococcus agalactiae group B On IV Unasyn. Local wound care. -Diabetes mellitus type 2, uncontrolled with hyperglycemia Oral hypoglycemic resume. Follow Accu-Cheks. -Diabetic peripheral neuropathy Lyrica 1 mg 3 times a day -Metabolic acidosis Sodium bicarbonate 3 times a day -Chronic lumbar L3-L4 herniated disc Pain control as needed Follow Accu-Cheks. IV Unasyn. Add sodium bicarbonate. Discussed at length with the patient and significant other the bedside. Dr. He. Total time spent today about 4040 minutes with about 25 minutes of discussion.
[2021-09-16] MEDS: SODIUM CHLORIDE 0.9% 1,000 ML IV SCH ×3 (00:46→11:53)
[2021-09-16] MEDS: MORPHINE SULFATE 4 MG/ML SYRINGE IV PRN ×4 (04:11→19:55)
[2021-09-16] MEDS: AMPICILLIN-SULBACTAM 3 GM in SODIUM CHLORIDE 0.9% 100 ML IVPB SCH ×4 (04:56→23:40)
[2021-09-16 07:09] LABS: Glucose,Whole Blood 188 mg/dL (75-99)
[2021-09-16] MEDS: ENOXAPARIN 40 MG/0.4 ML SYRINGE SQ SCH (08:37)
[2021-09-16] MEDS: LINAGLIPTIN 5 MG TABLET PO SCH (08:37)
[2021-09-16] MEDS: PREGABALIN 75 MG CAP PO SCH ×3 (08:37→21:46)
[2021-09-16] MEDS: SODIUM BICARBONATE TAB 650 MG TAB PO SCH ×3 (08:37→21:45)
[2021-09-16] MEDS: lisinopriL 10 MG TAB PO SCH (08:37)
[2021-09-16] MEDS: traMADol 50 MG TAB PO SCH ×3 (08:37→21:45)
[2021-09-16] MEDS: INSULIN ASPART (NovoLOG) 100 UNIT/ML VIAL SQ SCH ×4 (09:08→21:44)
[2021-09-16] MEDS: metFORMIN 500 MG TAB PO SCH ×2 (09:08→17:06)
[2021-09-16] MEDS: COLLAGENASE 250 UNIT/GM OINTMENT 30 GM TUBE TOPICAL SCH (09:42)
[2021-09-16] MEDS: NON FORMULARY DRUG (Empagliflozin [Jardiance] 10 MG Tablet) PO SCH (09:42)
[2021-09-16 11:21] LABS: Glucose,Whole Blood 154 mg/dL (75-99)
--- NOTE | 2021-09-16 13:44 | P.PN ---
Progress Note - Text Progress Note Date: 09/16/21 Chief Complaint: Left foot abscess This is a 56-year-old patient who follows with Dr. Sepulveda. Chronic stable medical conditions include diabetes, herniated L3-L4 disc, peripheral neuropathy. 10 days ago when he got out of the shower he noted a blood blister. He felt it could be from then he help somebody move furniture. Subsequently drained. 4 days ago he put on tennis shoe and went shopping. And suddenly he developed severe pain in the left foot. He decided to come into the urgent care yesterday. Was given, couple antibiotics. He took it for about 2 doses. X-ray done in the urgent care did not reveal any bone involvement. He started having chills. Finding decided to come in. He has significantly decreased sensation in the feet. Pain has been present in the foot now for last few days. Admitted with acute cellulitis and abscess of the left foot. Possibly from infected callus. Started IV vancomycin. Vascular surgery and ID consulted. September 14: Resting in bed. Awaiting surgery this afternoon. Getting IV vancomycin. September 15: Patient underwent abscess removal of the left foot yesterday. Rather extensive. Patient also had to have left total removed and the metatarsal bone removed. Dressing in place. Discussed with the patient and his girlfriend present. Concerned that the girlfriend lives about 2 hours away. She also knee surgery. Patient lives his 16 and 19 daughter at home. Care was discussed at length. Including wound VAC. Home IV antibiotics. Cultures. Cultures positive for Streptococcus agalactiae group B. September 16: Some pain in the foot. Getting IV morphine. No fever no chills. Oral intake fair. Girlfriend visiting. On IV Unasyn. Review of systems: Was done for constitutional, cardiovascular, GI, pulmonary. relevant finding as above Active Medications Acetaminophen (Acetaminophen Tab 325 Mg Tab) 650 mg PO Q6HR PRN PRN Reason: Mild Pain or Fever > 100.5 Collagenase (Collagenase 250 Unit/Gm Ointment 30 Gm Tube) 1 applic TOPICAL DAILY [facility]; Protocol Last Admin: 09/16/21 09:42 Dose: 1 applic Documented by: Enoxaparin Sodium (Enoxaparin 40 Mg/0.4 Ml Syringe) 40 mg SQ DAILY [facility] Last Admin: 09/16/21 08:37 Dose: 40 mg Documented by: Ampicillin Sodium/Sulbactam (Sodium 3 gm/ Sodium Chloride) 100 mls @ 200 mls/hr IVPB Q6HR [facility] Last Admin: 09/16/21 11:53 Dose: 200 mls/hr Documented by: Ibuprofen (Ibuprofen 400 Mg Tab) 400 mg PO Q6HR PRN PRN Reason: Mild Pain or Fever > 100.5 Indomethacin (Indomethacin 25 Mg Cap) 50 mg PO BID PRN PRN Reason: gout Insulin Aspart (Insulin Aspart (Novolog) 100 Unit/Ml Vial) 0 unit SQ ACHS [facility]; Protocol Last Admin: 09/16/21 13:11 Dose: 2 unit Documented by: Linagliptin (Linagliptin 5 Mg Tablet) 5 mg PO DAILY [facility] Last Admin: 09/16/21 08:37 Dose: 5 mg Documented by: Lisinopril (Lisinopril 10 Mg Tab) 10 mg PO DAILY [facility] Last Admin: 09/16/21 08:37 Dose: 10 mg Documented by: Metformin HCl (Metformin 500 Mg Tab) 1,000 mg PO BID-W/MEALS [facility] Last Admin: 09/16/21 09:08 Dose: 1,000 mg Documented by: Morphine Sulfate (Morphine Sulfate 4 Mg/Ml Syringe) 4 mg IV Q4HR PRN PRN Reason: Severe Pain Last Admin: 09/16/21 09:51 Dose: 4 mg Documented by: Naloxone HCl (Naloxone 0.4 Mg/Ml 1 Ml Vial) 0.2 mg IV Q2M PRN PRN Reason: Opioid Reversal Non-Formulary Medication (Empagliflozin [Jardiance]) 10 mg PO DAILY [facility] Last Admin: 09/16/21 09:42 Dose: Not Given Documented by: Ondansetron HCl (Ondansetron 4 Mg/2 Ml Vial) 4 mg IVP Q8HR PRN PRN Reason: Nausea And Vomiting Pregabalin (Pregabalin 75 Mg Cap) 150 mg PO TID [facility] Last Admin: 09/16/21 08:37 Dose: 150 mg Documented by: Sodium Bicarbonate (Sodium Bicarbonate Tab 650 Mg Tab) 650 mg PO TID [facility] Last Admin: 09/16/21 08:37 Dose: 650 mg Documented by: Tramadol HCl (Tramadol 50 Mg Tab) 100 mg PO TID [facility] Last Admin: 09/16/21 08:37 Dose: 100 mg Documented by: Past medical history to include: Diabetes, peripheral neuropathy, L3-L4 herniated disc Social history: Lives alone with 2 daughters. Does not smoke or drink alcohol. Family history: Reviewed, noncontributory to presentation Physical examination: VITAL SIGNS: 97.9, 68, 19, 1 36 x 86, 93% on room air GENERAL: Reclining in bed, awake, comfortable EYES: Pupils equal. Conjunctiva normal. NECK: JVD not raised; masses not palpable. HEART: First and second heart sounds are normal; no edema. LUNGS: Respiratory rate normal; clear to auscultation. ABDOMEN: Soft, nontender, liver spleen not palpable, no masses palpable. PSYCH: Alert and oriented x3; mood and affect normal. NEUROLOGICAL: Cranial nerves grossly intact; no facial asymmetry, power grossly intact. Decreased sensation distally. EXTREMITIES: Left foot in a dressing INVESTIGATIONS, reviewed in the clinical context: September 15: Potassium 4.6 BUN 25 crit 0.75. Accu-Cheks 170, 167 Wound culture growing Streptococcus agalactiae group B September 14: White count 13.4 hemoglobin 15.8 potassium 4.9 creatinine 0.76 White count 18.8 hemoglobin 17 platelets 199 sodium 133 potassium 4.9. 25 creatinine 0.87 bicarbonate 14 blood glucose 260 CRP 23.8 Coronavirus [PCR]: Not detected Assessment and plan: -Left foot abscess likely from infected callus, secondary to diabetes. Reamput ation of the left fifth toe that includes right metatarsal of the fifth toe and excision of all the devitalized tissue. Abscess drained. Cultures positive for Streptococcus agalactiae group B On IV Unasyn. Local wound care. Nonweightbearing. -Diabetes mellitus type 2, uncontrolled with hyperglycemia Sigifredo Veloz 10 mg daily, Glucophage thousand milligrams twice a day, trajenta 5 mg daily. Follow Accu-Cheks. -Diabetic peripheral neuropathy Lyrica 150 mg 3 times a day -Metabolic acidosis Sodium bicarbonate 3 times a day -Chronic lumbar L3-L4 herniated disc Pain control as needed Follow Accu-Cheks. IV Unasyn. sodium bicarbonate. Discussed with the patient and significant other the bedside. Cutback IV fluids.
--- NOTE | 2021-09-16 16:24 | PN ---
PROGRESS NOTE This patient came to the hospital with an infected callus, left foot, and blister formation on the dorsal aspect of the foot. The patient went for ray amputation of the left foot 5th toe and extensive debridement of the devitalized tissue. The patient is under care of Infectious Disease, on IV antibiotic. diagnosis is strep. Today we have changed the dressing. We used Santyl cream for the wound and there is still some redness noted from the dorsal aspect of the foot with some cellulitis. Changed the dressing today. We will change the dressing tomorrow. The patient is under care of Infectious Disease. We will use Santyl cream. MMODL / IJN: [id number] /
[2021-09-16 17:07] LABS: Glucose,Whole Blood 148 mg/dL (75-99)
[2021-09-16 20:22] LABS: Glucose,Whole Blood 150 mg/dL (75-99)
--- NOTE | 2021-09-16 22:55 | PN ---
PROGRESS NOTE DATE OF SERVICE: 09/16/2021 REASON FOR FOLLOWUP: Left diabetic foot infection with wet gangrene. INTERVAL HISTORY: Patient is afebrile. He is currently breathing comfortably. Pain to the left foot is currently controlled. No chest pain, shortness of breath or cough. No abdominal pain. No diarrhea. PHYSICAL EXAMINATION: Blood pressure is 157/89, pulse of 79, temperature 97.7. He is 97% on room air. General description is a middle-aged male lying in bed in no distress. Respiratory system: Unlabored breathing, clear to auscultation anteriorly. Heart S1, S2. Regular rate and rhythm. Abdomen soft, no tenderness. Left foot is currently dressed. Reviewing the pictures with the surgeon did show significant deep wound. LABS: Culture with Streptococcus agalactiae. DIAGNOSTIC IMPRESSION AND PLAN: Left diabetic foot infection with wet gangrene to the fifth toe, status post amputation of the left fifth toe with significantly deep wound. Culture with multiple pathogen. Patient will benefit from PICC line, IV antibiotic therapy on discharge, on Unasyn that can be adjusted to cefazolin, Flagyl and monitor clinical course closely. Continue supportive care. MMODL / IJN: [id number] /
[2021-09-17] MEDS: AMPICILLIN-SULBACTAM 3 GM in SODIUM CHLORIDE 0.9% 100 ML IVPB SCH ×4 (05:41→23:51)
[2021-09-17] MEDS: MORPHINE SULFATE 4 MG/ML SYRINGE IV PRN ×2 (05:53→13:10)
[2021-09-17 07:09] LABS: Basophils % (A) 1 %; Eosinophils # (A) 0.2 k/uL (0-0.7); Eosinophils % (A) 3 %; HCT 44.3 % (39.0-53.0); HGB 13.9 gm/dL (13.0-17.5); Lymphocytes # (A) 1.5 k/uL (1.0-4.8); Lymphocytes % (A) 22 %; MCH 27.3 pg (25.0-35.0); MCHC 31.3 g/dL (31.0-37.0); MCV 87.1 fL (80.0-100.0); Mean Platelet Volume 7.9; Monocytes # (A) 0.5 k/uL (0-1.0); Monocytes % (A) 8 %; Neutrophils # (A) 4.4 k/uL (1.3-7.7); Neutrophils % (A) 64 %; Platelet Count 202 k/uL (150-450); RBC 5.08 m/uL (4.30-5.90); WBC 6.8 k/uL (3.8-10.6)
[2021-09-17 07:27] LABS: ALT 8 U/L (4-49); AST 16 U/L (17-59); African American GFR (CKD) >90 (>60 ml/min/1.73 sqM); Albumin 2.8 g/dL (3.5-5.0); Albumin/Globulin Ratio 0.9; Alkaline Phosphatase 61 U/L (38-126); Anion Gap 5 mmol/L; Blood Urea Nitrogen 15 mg/dL (9-20); Calcium 8.9 mg/dL (8.4-10.2); Carbon Dioxide 25 mmol/L (22-30); Chloride 106 mmol/L (98-107); Globulin 3.1 g/dL; Glucose 171 mg/dL (74-99); Non-African American GFR(CKD) >90 (>60 ml/min/1.73 sqM); Potassium 4.6 mmol/L (3.5-5.1); Sodium 136 mmol/L (137-145); Total Bilirubin 0.4 mg/dL (0.2-1.3); Total Protein 5.9 g/dL (6.3-8.2)
[2021-09-17] MEDS: PREGABALIN 75 MG CAP PO SCH ×3 (07:35→21:28)
[2021-09-17] MEDS: SODIUM BICARBONATE TAB 650 MG TAB PO SCH ×3 (07:35→21:28)
[2021-09-17] MEDS: lisinopriL 10 MG TAB PO SCH (07:35)
[2021-09-17] MEDS: traMADol 50 MG TAB PO SCH ×3 (07:35→21:28)
[2021-09-17] MEDS: NON FORMULARY DRUG (Empagliflozin [Jardiance] 10 MG Tablet) PO SCH (07:36)
[2021-09-17] MEDS: metFORMIN 500 MG TAB PO SCH ×2 (07:36→17:54)
[2021-09-17] MEDS: LINAGLIPTIN 5 MG TABLET PO SCH (07:36)
[2021-09-17] MEDS: COLLAGENASE 250 UNIT/GM OINTMENT 30 GM TUBE TOPICAL SCH (07:36)
[2021-09-17 07:56] LABS: Glucose,Whole Blood 148 mg/dL (75-99)
[2021-09-17] MEDS: INSULIN ASPART (NovoLOG) 100 UNIT/ML VIAL SQ SCH ×4 (08:45→21:12)
[2021-09-17] MEDS: ENOXAPARIN 40 MG/0.4 ML SYRINGE SQ SCH (08:46)
[2021-09-17 11:43] LABS: Glucose,Whole Blood 129 mg/dL (75-99)
--- NOTE | 2021-09-17 15:11 | PN ---
PROGRESS NOTE This is a 50-year-old diabetic gentleman who had an infected callus with a blister formation on the plantar and dorsal distal aspect of the foot also involving the left the fifth toe. The patient went for ray amputation of the left foot fifth toe and also at the level of the metatarsophalangeal joint. The patient is on IV antibiotic under care of Infectious Disease. Today we have changed the dressing. We will be using Santyl cream. Also noted 1 blister on the dorsal aspect of the foot which has some discoloration of the skin at that area. We will continue with Santyl cream. Most likely we we will place a VAC therapy on Monday. Continue the same wound treatment. MMODL / IJN: [id number] /
[2021-09-17 17:20] LABS: Glucose,Whole Blood 206 mg/dL (75-99)
--- NOTE | 2021-09-17 17:26 | P.PN ---
Progress Note - Text Progress Note Date: 09/17/21 Chief Complaint: Left foot abscess This is a 56-year-old patient who follows with Dr. Sepulveda. Chronic stable medical conditions include diabetes, herniated L3-L4 disc, peripheral neuropathy. 10 days ago when he got out of the shower he noted a blood blister. He felt it could be from then he help somebody move furniture. Subsequently drained. 4 days ago he put on tennis shoe and went shopping. And suddenly he developed severe pain in the left foot. He decided to come into the urgent care yesterday. Was given, couple antibiotics. He took it for about 2 doses. X-ray done in the urgent care did not reveal any bone involvement. He started having chills. Finding decided to come in. He has significantly decreased sensation in the feet. Pain has been present in the foot now for last few days. Admitted with acute cellulitis and abscess of the left foot. Possibly from infected callus. Started IV vancomycin. Vascular surgery and ID consulted. September 14: Resting in bed. Awaiting surgery this afternoon. Getting IV vancomycin. September 15: Patient underwent abscess removal of the left foot yesterday. Rather extensive. Patient also had to have left total removed and the metatarsal bone removed. Dressing in place. Discussed with the patient and his girlfriend present. Concerned that the girlfriend lives about 2 hours away. She also knee surgery. Patient lives his 16 and 19 daughter at home. Care was discussed at length. Including wound VAC. Home IV antibiotics. Cultures. Cultures positive for Streptococcus agalactiae group B. September 16: Some pain in the foot. Getting IV morphine. No fever no chills. Oral intake fair. Girlfriend visiting. On IV Unasyn. September 17: Oral intake fair. 4 dressing done yesterday by Dr. He. IV Unasyn. Discussed with patient to be getting IV home antibiotics. Review of systems: Was done for constitutional, cardiovascular, GI, pulmonary. relevant finding as above Active Medications Acetaminophen (Acetaminophen Tab 325 Mg Tab) 650 mg PO Q6HR PRN PRN Reason: Mild Pain or Fever > 100.5 Collagenase (Collagenase 250 Unit/Gm Ointment 30 Gm Tube) 1 applic TOPICAL DAILY [facility]; Protocol Last Admin: 09/17/21 07:36 Dose: 1 applic Documented by: Enoxaparin Sodium (Enoxaparin 40 Mg/0.4 Ml Syringe) 40 mg SQ DAILY [facility] Last Admin: 09/17/21 08:46 Dose: 40 mg Documented by: Ampicillin Sodium/Sulbactam (Sodium 3 gm/ Sodium Chloride) 100 mls @ 200 mls/hr IVPB Q6HR [facility] Last Admin: 09/17/21 12:45 Dose: 200 mls/hr Documented by: Indomethacin (Indomethacin 25 Mg Cap) 50 mg PO BID PRN PRN Reason: gout Insulin Aspart (Insulin Aspart (Novolog) 100 Unit/Ml Vial) 0 unit SQ ACHS [facility]; Protocol Last Admin: 09/17/21 11:59 Dose: Not Given Documented by: Linagliptin (Linagliptin 5 Mg Tablet) 5 mg PO DAILY [facility] Last Admin: 09/17/21 07:36 Dose: 5 mg Documented by: Lisinopril (Lisinopril 10 Mg Tab) 10 mg PO DAILY [facility] Last Admin: 09/17/21 07:35 Dose: 10 mg Documented by: Metformin HCl (Metformin 500 Mg Tab) 1,000 mg PO BID-W/MEALS [facility] Last Admin: 09/17/21 07:36 Dose: 1,000 mg Documented by: Morphine Sulfate (Morphine Sulfate 4 Mg/Ml Syringe) 4 mg IV Q4HR PRN PRN Reason: Severe Pain Last Admin: 09/17/21 13:10 Dose: 4 mg Documented by: Naloxone HCl (Naloxone 0.4 Mg/Ml 1 Ml Vial) 0.2 mg IV Q2M PRN PRN Reason: Opioid Reversal Non-Formulary Medication (Empagliflozin [Jardiance]) 10 mg PO DAILY [facility] Last Admin: 09/17/21 07:36 Dose: Not Given Documented by: Ondansetron HCl (Ondansetron 4 Mg/2 Ml Vial) 4 mg IVP Q8HR PRN PRN Reason: Nausea And Vomiting Pregabalin (Pregabalin 75 Mg Cap) 150 mg PO TID [facility] Last Admin: 09/17/21 16:22 Dose: 150 mg Documented by: Sodium Bicarbonate (Sodium Bicarbonate Tab 650 Mg Tab) 650 mg PO TID [facility] Last Admin: 09/17/21 16:22 Dose: 650 mg Documented by: Tramadol HCl (Tramadol 50 Mg Tab) 100 mg PO TID [facility] Last Admin: 09/17/21 16:22 Dose: 100 mg Documented by: Past medical history to include: Diabetes, peripheral neuropathy, L3-L4 herniated disc Social history: Lives alone with 2 daughters. Does not smoke or drink alcohol. Family history: Reviewed, noncontributory to presentation Physical examination: VITAL SIGNS: 97.8, 66, 16, 150/85, 94% room air GENERAL: Reclining in bed, awake, comfortable EYES: Pupils equal. Conjunctiva normal. NECK: JVD not raised; masses not palpable. HEART: First and second heart sounds are normal; no edema. LUNGS: Respiratory rate normal; clear to auscultation. ABDOMEN: Soft, nontender, liver spleen not palpable, no masses palpable. PSYCH: Alert and oriented x3; mood and affect normal. NEUROLOGICAL: Cranial nerves grossly intact; no facial asymmetry, power grossly intact. Decreased sensation distally. EXTREMITIES: Left foot in a dressing INVESTIGATIONS, reviewed in the clinical context: September 17: White count 6.18 globin 13.9 potassium 4.6 creatinine 0.62 albumin 2.8 September 15: Potassium 4.6 BUN 25 crit 0.75. Accu-Cheks 170, 167 Wound culture growing Streptococcus agalactiae group B September 14: White count 13.4 hemoglobin 15.8 potassium 4.9 creatinine 0.76 White count 18.8 hemoglobin 17 platelets 199 sodium 133 potassium 4.9. 25 creatinine 0.87 bicarbonate 14 blood glucose 260 CRP 23.8 Coronavirus [PCR]: Not detected Assessment and plan: -Left foot abscess likely from infected callus, secondary to diabetes. Ray- amputation of the left fifth toe that includes right metatarsal of the fifth toe and excision of all the devitalized tissue. Abscess drained. Cultures positive for Streptococcus agalactiae group B On IV Unasyn. Local wound care. Nonweightbearing. -Diabetes mellitus type 2, uncontrolled with hyperglycemia Sigifredo Veloz 10 mg daily, Glucophage thousand milligrams twice a day, trajenta 5 mg daily. Follow Accu-Cheks. -Diabetic peripheral neuropathy Lyrica 150 mg 3 times a day -Essential hypertension Lisinopril hydrochlorothiazide 10/12.5 daily at bedtime -Metabolic acidosis Sodium bicarbonate 3 times a day -Chronic lumbar L3-L4 herniated disc Pain control as needed -Hypoalbuminemia, acute phase reactant IV Unasyn. Lisinopril hydrochlorothiazide 10/12.5 start daily at bedtime. Discussed with patient
--- NOTE | 2021-09-17 17:53 | PN ---
PROGRESS NOTE DATE OF SERVICE: 09/17/2021 REASON FOR FOLLOWUP: Left diabetic foot infection with wet gangrene. INTERVAL HISTORY: Patient is afebrile. The patient is currently breathing comfortably. Denies having any chest pain, shortness of breath or cough. No nausea, vomiting, no abdominal pain. pain to the left foot area. PHYSICAL EXAMINATION: Blood pressure 150/85, pulse of 63, temperature 97.8. He is 94% on room air. General description is a middle-aged male lying in bed in no distress. Respiratory system: Unlabored breathing, clear to auscultation anteriorly. Heart S1, S2. Regular rate and rhythm. Abdomen soft, no tenderness. Left foot currently dressed. No obvious drainage on the dressing. LAB: Hemoglobin 14, white count 6.9, BUN of 15, creatinine 0.62. DIAGNOSTIC IMPRESSION AND PLAN: Patient with left diabetic foot infection with wet gangrene status post amputation. Culture with multiple pathogen including Streptococcus agalactiae anaerobes. Patient is covered with Unasyn. Plan is for a PICC line and Rocephin and Flagyl on discharge. Local wound care with wound VAC. Continue supportive care. MMODL / IJN: [id number] /
[2021-09-17 20:38] LABS: Glucose,Whole Blood 123 mg/dL (75-99)
[2021-09-17] MEDS: LISINOPRIL-HCTZ 10-12.5 MG 1 EACH TAB PO SCH (21:28)
[2021-09-18] MEDS: MORPHINE SULFATE 4 MG/ML SYRINGE IV PRN ×4 (03:17→19:13)
[2021-09-18] MEDS: AMPICILLIN-SULBACTAM 3 GM in SODIUM CHLORIDE 0.9% 100 ML IVPB SCH ×3 (06:02→17:58)
[2021-09-18 08:27] LABS: Glucose,Whole Blood 171 mg/dL (75-99)
[2021-09-18] MEDS: metFORMIN 500 MG TAB PO SCH ×2 (08:57→17:54)
[2021-09-18] MEDS: LINAGLIPTIN 5 MG TABLET PO SCH (08:57)
[2021-09-18] MEDS: SODIUM BICARBONATE TAB 650 MG TAB PO SCH ×3 (08:57→21:12)
[2021-09-18] MEDS: PREGABALIN 75 MG CAP PO SCH ×3 (08:57→21:11)
[2021-09-18] MEDS: lisinopriL 10 MG TAB PO SCH (08:57)
[2021-09-18] MEDS: traMADol 50 MG TAB PO SCH ×3 (08:58→21:11)
[2021-09-18] MEDS: NON FORMULARY DRUG (Empagliflozin [Jardiance] 10 MG Tablet) PO SCH (09:00)
[2021-09-18] MEDS: ENOXAPARIN 40 MG/0.4 ML SYRINGE SQ SCH (09:00)
[2021-09-18] MEDS: INSULIN ASPART (NovoLOG) 100 UNIT/ML VIAL SQ SCH ×4 (09:10→21:12)
[2021-09-18] MEDS: COLLAGENASE 250 UNIT/GM OINTMENT 30 GM TUBE TOPICAL SCH (09:10)
--- NOTE | 2021-09-18 11:27 | PN ---
PROGRESS NOTE This is a 56-year-old gentleman who had wet gangrene of the left foot involving the plantar and dorsal aspect of the foot and also the fifth toe. The patient went for ray amputation. The patient is under care of Infectious Disease for IV antibiotic. There was some blister on the dorsal aspect of the foot and there is some redness noted on the dorsal aspect of the foot. We have been using Santyl cream for the wound. Most likely, we will do some further debridement on Monday on the dorsum aspect of the foot. Continue with Santyl cream and IV antibiotic. MMODL / IJN: [id number] /
[2021-09-18 13:02] LABS: Glucose,Whole Blood 201 mg/dL (75-99)
[2021-09-18 17:36] LABS: Glucose,Whole Blood 117 mg/dL (75-99)
--- NOTE | 2021-09-18 17:54 | P.PN ---
Subjective This is a 56-year-old patient who follows with Dr. Sepulveda. Chronic stable medical conditions include diabetes, herniated L3-L4 disc, peripheral n europathy. 10 days ago when he got out of the shower he noted a blood blister. He felt it could be from then he help somebody move furniture. Subsequently drained. 4 days ago he put on tennis shoe and went shopping. And suddenly he developed severe pain in the left foot. He decided to come into the urgent care yesterday. Was given, couple antibiotics. He took it for about 2 doses. X-ray done in the urgent care did not reveal any bone involvement. He started having chills. Finding decided to come in. He has significantly decreased sensation in the feet. Pain has been present in the foot now for last few days. Admitted with acute cellulitis and abscess of the left foot. Possibly from infected callus. Started IV vancomycin. Vascular surgery and ID consulted. September 14: Resting in bed. Awaiting surgery this afternoon. Getting IV vancomycin. September 15: Patient underwent abscess removal of the left foot yesterday. Rather extensive. Patient also had to have left total removed and the metatarsal bone removed. Dressing in place. Discussed with the patient and his girlfriend present. Concerned that the girlfriend lives about 2 hours away. She also knee surgery. Patient lives his 16 and 19 daughter at home. Care was discussed at length. Including wound VAC. Home IV antibiotics. Cultures. Cultures positive for Streptococcus agalactiae group B. September 16: Some pain in the foot. Getting IV morphine. No fever no chills. Oral intake fair. Girlfriend visiting. On IV Unasyn. September 17: Oral intake fair. 4 dressing done yesterday by Dr. He. IV U nasyn. Discussed with patient to be getting IV home antibiotics. Subjective: 09/18/2021 This is a pleasant 56 years old male with multiple medical problems as above presents with left foot abscess and wet gangrene of the plantar and dorsal aspects status post debridement of the fore foot and of the fifth toe by vascular surgery team and Dr. Treadwell. Currently patient lying in bed comfortable with no complaint. Left foot is healing and dressing is in place. Vitals and labs are stable. No labs from today. Wound culture is growing Streptococcus agalacteae, also unaerobic gram-positive cocci and currently is negative for staph patient may need more debridement on Monday for his left foot infection Objective - Vital Signs Vital signs: Vital Signs Temp 98.0 F 09/18/21 05:00 Pulse 93 09/18/21 09:14 Resp 16 09/18/21 05:00 BP 131/77 09/18/21 09:14 Pulse Ox 97 09/18/21 05:00 Intake & Output 09/17/21 09/18/21 09/18/21 18:59 06:59 18:59 Intake Total 200 590 Output Total 1200 2275 Balance -1000 -1685 Intake: Intake, IV Titration 200 Amount Ampicillin-Sulbactam 3 gm 200 In Sodium Chloride 0.9% 100 ml @ 200 mls/hr IVPB Q6HR [facility] Rx#:[id number] Oral 590 Output: Urine 1200 2275 Other: # Voids 1 # Bowel Movements 1 1 - Labs CBC & Chem 7: 09/17/21 06:42 09/17/21 06:42 Labs: Abnormal Lab Results - Last 24 Hours (Table) 09/17/21 09/17/21 09/18/21 Range/Units 17:13 20:36 08:25 POC Glucose (mg/dL) 206 H 123 H 171 H (75-99) mg/dL 09/18/21 Range/Units 12:59 POC Glucose (mg/dL) 201 H (75-99) mg/dL Microbiology - Last 24 Hours (Table) 09/13/21 12:06 Blood Culture - Preliminary Blood No Growth after 120 hours 09/14/21 14:54 Anaerobic Culture - Final Foot - Left Anaerobic Gram Positive Cocci 09/14/21 14:54 Anaerobic Culture - Final Foot - Left Anaerobic Gm Negative Bacilli Anaerobic Gram Positive Cocci 09/14/21 14:54 Anaerobic Culture - Final Toe - Left Fifth Anaerobic Gram Positive Cocci Assessment and Plan Assessment: -Left foot abscess likely from infected callus, secondary to diabetes. Ray- amputation of the left fifth toe that includes right metatarsal of the fifth toe and excision of all the devitalized tissue. Abscess drained. Cultures positive for Streptococcus agalactiae group B, unaerobic gram-positive cocci and coagulase-negative staph On IV Unasyn. Local wound care. Nonweightbearing. Possible will need more debridement on Monday with Dr. Treadwell -Diabetes mellitus type 2, uncontrolled with hyperglycemia Sigifredo Veloz 10 mg daily, Glucophage thousand milligrams twice a day, trajenta 5 mg daily. Follow Accu-Cheks. -Diabetic peripheral neuropathy Lyrica 150 mg 3 times a day -Essential hypertension Lisinopril hydrochlorothiazide 10/12.5 daily at bedtime -Metabolic acidosis Sodium bicarbonate 3 times a day -Chronic lumbar L3-L4 herniated disc Pain control as needed -Hypoalbuminemia, acute phase reactant
--- NOTE | 2021-09-18 19:06 | PN ---
PROGRESS NOTE DATE OF SERVICE: 09/18/2021. REASON FOR FOLLOWUP: Left diabetic foot infection with wet gangrene to the left fifth toe. INTERVAL HISTORY: The patient is afebrile, has been breathing comfortably. Complaining of some pain to his left foot amputation site. No chest pain, shortness of breath or cough. No abdominal pain or diarrhea. PHYSICAL EXAMINATION: Blood pressure 135/80 with a pulse of 78, temperature 98.7. He is 95% on room air. General description is a middle-aged male up in the bed in no distress. Respiratory system: Unlabored breathing, clear to auscultation anteriorly. Heart S1, S2. Regular rate and rhythm. Abdomen soft, no tenderness. Left foot is currently dressed. No obvious drainage on the dressing. LABS: No new labs have been obtained today. Culture with Streptococcus agalactiae. DIAGNOSTIC IMPRESSION AND PLAN: Patient with left diabetic foot infection with wet gangrene to the fifth toe status post amputation of left fifth toe with infected part removed. However, the patient still has significant inflammation at the amputation site. He did get a PICC line. Waiting for outpatient IV antibiotics as well as wound VAC arrangement and continue supportive care. Continue with Unasyn while inpatient. MMODL / IJN: [id number] /
[2021-09-18 20:30] LABS: Glucose,Whole Blood 191 mg/dL (75-99)
[2021-09-18] MEDS: LISINOPRIL-HCTZ 10-12.5 MG 1 EACH TAB PO SCH (21:12)
[2021-09-19] MEDS: MORPHINE SULFATE 4 MG/ML SYRINGE IV PRN ×4 (00:19→19:36)
[2021-09-19] MEDS: AMPICILLIN-SULBACTAM 3 GM in SODIUM CHLORIDE 0.9% 100 ML IVPB SCH ×5 (00:19→23:47)
[2021-09-19 07:26] LABS: Glucose,Whole Blood 143 mg/dL (75-99)
[2021-09-19] MEDS: NON FORMULARY DRUG (Empagliflozin [Jardiance] 10 MG Tablet) PO SCH (08:16)
[2021-09-19] MEDS: SODIUM BICARBONATE TAB 650 MG TAB PO SCH ×3 (08:18→20:57)
[2021-09-19] MEDS: traMADol 50 MG TAB PO SCH ×3 (08:18→20:58)
[2021-09-19] MEDS: PREGABALIN 75 MG CAP PO SCH ×3 (08:18→20:57)
[2021-09-19] MEDS: INSULIN ASPART (NovoLOG) 100 UNIT/ML VIAL SQ SCH ×4 (08:18→20:58)
[2021-09-19] MEDS: metFORMIN 500 MG TAB PO SCH ×2 (08:18→17:43)
[2021-09-19] MEDS: lisinopriL 10 MG TAB PO SCH (08:18)
[2021-09-19] MEDS: LINAGLIPTIN 5 MG TABLET PO SCH (08:18)
[2021-09-19] MEDS: ENOXAPARIN 40 MG/0.4 ML SYRINGE SQ SCH (08:19)
[2021-09-19] MEDS: COLLAGENASE 250 UNIT/GM OINTMENT 30 GM TUBE TOPICAL SCH (09:27)
[2021-09-19 12:24] LABS: Glucose,Whole Blood 164 mg/dL (75-99)
[2021-09-19 17:13] LABS: Glucose,Whole Blood 144 mg/dL (75-99)
[2021-09-19 20:41] LABS: Glucose,Whole Blood 124 mg/dL (75-99)
--- NOTE | 2021-09-19 21:01 | PN ---
PROGRESS NOTE DATE OF SERVICE: 09/19/2021 REASON FOR FOLLOWUP: Left diabetic foot infection with wet gangrene. INTERVAL HISTORY: The patient is afebrile. The patient is currently breathing comfortably. The patient denies having any chest pain, shortness of breath or cough. No abdominal pain or any worsening pain to the left foot area. PHYSICAL EXAMINATION: Blood pressure 132/86, pulse of 79, temperature of 99. He is 92% on room air. General description is a middle-aged male lying in bed in no distress. Respiratory system: Unlabored breathing, clear to auscultation anteriorly. Heart S1, S2. Regular rate and rhythm. Abdomen soft, no tenderness. LABS: No new labs have been obtained today. DIAGNOSTIC IMPRESSION AND PLAN: Patient with left diabetic foot infection in this patient who did have left fifth toe wet gangrene, status post amputation of the fifth toe. Culture with multiple pathogens. Patient is covered with Unasyn. Plan is for Rocephin 2 grams daily and oral Flagyl for at least 4 to 6 weeks, depending on clinical response. Local wound care with a wound V.A.C. Continue with supportive care. MMODL / IJN: [id number] /
[2021-09-19] MEDS: LISINOPRIL-HCTZ 10-12.5 MG 1 EACH TAB PO SCH (21:03)
[2021-09-20] MEDS: AMPICILLIN-SULBACTAM 3 GM in SODIUM CHLORIDE 0.9% 100 ML IVPB SCH ×2 (05:18→12:50)
[2021-09-20] MEDS: MORPHINE SULFATE 4 MG/ML SYRINGE IV PRN ×2 (07:04→14:02)
--- NOTE | 2021-09-20 07:19 | P.PN ---
Subjective This is a 56-year-old patient who follows with Dr. Sepulveda. Chronic stable medical conditions include diabetes, herniated L3-L4 disc, peripheral n europathy. 10 days ago when he got out of the shower he noted a blood blister. He felt it could be from then he help somebody move furniture. Subsequently drained. 4 days ago he put on tennis shoe and went shopping. And suddenly he developed severe pain in the left foot. He decided to come into the urgent care yesterday. Was given, couple antibiotics. He took it for about 2 doses. X-ray done in the urgent care did not reveal any bone involvement. He started having chills. Finding decided to come in. He has significantly decreased sensation in the feet. Pain has been present in the foot now for last few days. Admitted with acute cellulitis and abscess of the left foot. Possibly from infected callus. Started IV vancomycin. Vascular surgery and ID consulted. September 14: Resting in bed. Awaiting surgery this afternoon. Getting IV vancomycin. September 15: Patient underwent abscess removal of the left foot yesterday. Rather extensive. Patient also had to have left total removed and the metatarsal bone removed. Dressing in place. Discussed with the patient and his girlfriend present. Concerned that the girlfriend lives about 2 hours away. She also knee surgery. Patient lives his 16 and 19 daughter at home. Care was discussed at length. Including wound VAC. Home IV antibiotics. Cultures. Cultures positive for Streptococcus agalactiae group B. September 16: Some pain in the foot. Getting IV morphine. No fever no chills. Oral intake fair. Girlfriend visiting. On IV Unasyn. September 17: Oral intake fair. 4 dressing done yesterday by Dr. He. IV U nasyn. Discussed with patient to be getting IV home antibiotics. Subjective: 09/18/2021 This is a pleasant 56 years old male with multiple medical problems as above presents with left foot abscess and wet gangrene of the plantar and dorsal aspects status post debridement of the fore foot and of the fifth toe by vascular surgery team and Dr. Treadwell. Currently patient lying in bed comfortable with no complaint. Left foot is healing and dressing is in place. Vitals and labs are stable. No labs from today. Wound culture is growing Streptococcus agalacteae, also unaerobic gram-positive cocci and currently is negative for staph patient may need more debridement on Monday for his left foot infection 09/19/2021 Patient is clinically doing well. Asymptomatic History of left foot wound with a dressing in place. Vascular surgery planning for possible another debridement tomorrow Objective - Vital Signs Vital signs: Vital Signs Temp 97.4 F L 09/19/21 04:27 Pulse 78 09/19/21 08:22 Resp 18 09/19/21 04:27 BP 130/87 09/19/21 08:22 Pulse Ox 95 09/19/21 04:27 Intake & Output 09/18/21 09/19/21 09/19/21 19:59 06:59 18:59 Intake Total Output Total Balance Intake: Intake, IV Titration Amount Ampicillin-Sulbactam 3 gm In Sodium Chloride 0.9% 100 ml @ 200 mls/hr IVPB Q6HR [facility] Rx#:[id number] Oral Output: Urine Other: Voiding Method - Exam GENERAL: The patient is alert and oriented x3, not in any acute distress. Well developed, well nourished. HEENT: Pupils are round and equally reacting to light. EOMI. No scleral icterus. No conjunctival pallor. Normocephalic, atraumatic. No pharyngeal erythema. No thyromegaly. CARDIOVASCULAR: S1 and S2 present. No murmurs, rubs, or gallops. PULMONARY: Chest is clear to auscultation, no wheezing or crackles. ABDOMEN: Soft, nontender, nondistended, normoactive bowel sounds. No palpable organomegaly. MUSCULOSKELETAL: No joint swelling or deformity. -EXTREMITIES: No cyanosis, clubbing, or pedal edema. Left foot wound with a dressing NEUROLOGICAL: Gross neurological examination did not reveal any focal deficits. SKIN: No rashes. no petechiae. - Labs CBC & Chem 7: 09/17/21 06:42 09/17/21 06:42 Labs: Abnormal Lab Results - Last 24 Hours (Table) 09/18/21 09/18/21 09/18/21 Range/Units 12:59 17:33 20:24 POC Glucose (mg/dL) 201 H 117 H 191 H (75-99) mg/dL 09/19/21 Range/Units 07:21 POC Glucose (mg/dL) 143 H (75-99) mg/dL Microbiology - Last 24 Hours (Table) 09/13/21 12:06 Blood Culture - Preliminary Blood No Growth after 120 hours 09/14/21 14:54 Anaerobic Culture - Final Foot - Left Anaerobic Gram Positive Cocci 09/14/21 14:54 Anaerobic Culture - Final Foot - Left Anaerobic Gm Negative Bacilli Anaerobic Gram Positive Cocci 09/14/21 14:54 Anaerobic Culture - Final Toe - Left Fifth Anaerobic Gram Positive Cocci Assessment and Plan Assessment: -Left foot abscess likely from infected callus, secondary to diabetes. Ray- amputation of the left fifth toe that includes right metatarsal of the fifth toe and excision of all the devitalized tissue. Abscess drained. Cultures positive for Streptococcus agalactiae group B, unaerobic gram-positive cocci and coagulase-negative staph On IV Unasyn. Local wound care. Nonweightbearing. Possible will need more debridement on Monday with Dr. Treadwell -Diabetes mellitus type 2, uncontrolled with hyperglycemia Sigifredo Veloz 10 mg daily, Glucophage thousand milligrams twice a day, trajenta 5 mg daily. Follow Accu-Cheks. -Diabetic peripheral neuropathy Lyrica 150 mg 3 times a day -Essential hypertension Lisinopril hydrochlorothiazide 10/12.5 daily at bedtime -Metabolic acidosis Sodium bicarbonate 3 times a day -Chronic lumbar L3-L4 herniated disc Pain control as needed -Hypoalbuminemia, acute phase reactant
[2021-09-20 07:40] LABS: Glucose,Whole Blood 146 mg/dL (75-99)
[2021-09-20] MEDS ORDERED: LIDOCAINE 1% INJ 10MG/ML (20 ML MDV) ONE (07:51)
--- NOTE | 2021-09-20 07:51 | IR ---
PICC LINE PLACEMENT: HISTORY: Infection requiring long-term antibiotic therapy PROCEDURE: Ultrasound and fluoroscopic guidance of PICC line placement. COMPLICATIONS: None ANESTHESIA: 1. 1% Lidocaine locally. FINDINGS/TECHNIQUE: The procedure was explained to the patient. The risks, complications, benefits and alternatives were discussed and any questions were answered. Informed consent was obtained. The patient was placed supine on the fluoroscopic table and prepped and draped in the usual sterile fash ion. Utilizing a 21 gauge needle and sonographic and fluoroscopic guidance, access in the left basi lic vein was achieved and there is placement of a 0.018 guidewire. The vein is patent. A 4-F sheath was placed over the guidewire. The guidewire and dilator were removed and a 4-F. PICC line was plac ed through the sheath with the tip at the level of the SVC. The sheath was removed, the catheter was flushed and sutured into position. The patient was stable throughout the procedure and remained sta ble upon discharge from the Department of Radiology. The vein puncture was patent under ultrasound. A sim scale image was obtained to document patency of the vein punctured. All elements of the maximal barrier technique were utilized. FLUOROSCOPY TIME: 0.3 minutes and 1 images submitted IMPRESSION: Successful PICC line placement under ultrasound and fluoroscopic guidance.
[2021-09-20] MEDS: NON FORMULARY DRUG (Empagliflozin [Jardiance] 10 MG Tablet) PO SCH (08:03)
[2021-09-20] MEDS: PREGABALIN 75 MG CAP PO SCH ×2 (09:11→15:43)
[2021-09-20] MEDS: lisinopriL 10 MG TAB PO SCH (09:11)
[2021-09-20] MEDS: SODIUM BICARBONATE TAB 650 MG TAB PO SCH ×2 (09:12→15:43)
[2021-09-20] MEDS: metFORMIN 500 MG TAB PO SCH ×2 (09:12→17:35)
[2021-09-20] MEDS: INSULIN ASPART (NovoLOG) 100 UNIT/ML VIAL SQ SCH ×3 (09:12→17:32)
[2021-09-20] MEDS: traMADol 50 MG TAB PO SCH ×2 (09:12→15:43)
[2021-09-20] MEDS: COLLAGENASE 250 UNIT/GM OINTMENT 30 GM TUBE TOPICAL SCH (09:12)
[2021-09-20] MEDS: ENOXAPARIN 40 MG/0.4 ML SYRINGE SQ SCH (09:12)
[2021-09-20] MEDS: LINAGLIPTIN 5 MG TABLET PO SCH (09:13)
[2021-09-20 12:32] LABS: Glucose,Whole Blood 152 mg/dL (75-99)
[2021-09-20 12:59] VITALS: BP 102/63; PULSE 91; RESP 17; TEMP 97.9
--- NOTE | 2021-09-20 13:11 | PN ---
PROGRESS NOTE This is a 56-year-old gentleman who had wet gangrene, infected callus, left foot plantar aspect. Patient underwent extensive debridement, including amputation of the fifth toe. Patient is under care of Infectious Disease, on IV antibiotic. We have been treating with local wound care. We have changed the dressing. Will continue with Santyl cream. We will hold the V.A.C. therapy because skin on the dorsal aspect is not very healthy. If patient goes home, patient will follow in the wound clinic. MMODL / IJN: [id number] /
--- NOTE | 2021-09-20 14:27 | PN ---
PROGRESS NOTE DATE OF SERVICE: 09/20/2021 REASON FOR FOLLOWUP: Left diabetic foot infection with gangrene of the fifth toe. INTERVAL HISTORY: The patient is afebrile, has been breathing comfortably. Complaining of some pain to the left arm and left side of the chest. No problem with the PICC line . No chest pain, shortness of breath or cough. No abdominal pain or pain to the left foot. PHYSICAL EXAMINATION: Blood pressure 110/68 with a pulse of 85, temperature 97.5. He is 95% on room air. General description is a middle-aged male lying in bed in no distress. Respiratory system: Unlabored breathing, clear to auscultation anteriorly. Heart S1, S2. Regular rate and rhythm. Abdomen soft, no tenderness. Left foot is currently dressed up dressing. Left arm PICC site currently with no swelling, no redness, no . LABS: No new labs have been obtained today. DIAGNOSTIC IMPRESSION AND PLAN: Patient with left foot gangrene, amputation of left fifth toe. Culture with multiple pathogens. Planning for Rocephin 2 grams daily along with oral Flagyl for 4 weeks and close outpatient followup. Continue with supportive care. Local wound care with Santyl followed by moist dressing. Advised to follow up with the Wound Center and Dr. Treadwell next week. MMODL / IJN: [id number] /
[2021-09-20] MEDS ORDERED: metroNIDAZOLE 500 MG TAB PO SCH (16:00)
[2021-09-20 17:04] LABS: Glucose,Whole Blood 98 mg/dL (75-99)
--- NOTE | 2021-09-20 18:56 | P.DS ---
Providers Date of admission: 09/13/21 13:13 Expected date of discharge: 09/20/21 Attending physician: Tyrese Patterson Consults: 09/13/21 13:13 Consult Physician Urgent Consulting Provider: Brooke Su Consult Reason/Comments: Left diabetic wound/cellulitis/septic Do you want consulting provider notified?: Yes 09/13/21 21:25 Consult Physician Routine Consulting Provider: Bean Price Consult Reason/Comments: left leg wound , debridemnt and deep cultures Do you want consulting provider notified?: Yes Primary care physician: Fidencio Sepulveda [facility] Hospital Course: Chief Complaint: Left foot abscess This is a 56-year-old patient who follows with Dr. Sepulveda. Chronic stable medical conditions include diabetes, herniated L3-L4 disc, peripheral neuropathy. 10 days ago when he got out of the shower he noted a blood blister. He felt it could be from then he help somebody move furniture. Subsequently drained. 4 days ago he put on tennis shoe and went shopping. And suddenly he developed severe pain in the left foot. He decided to come into the urgent care yesterday. Was given, couple antibiotics. He took it for about 2 doses. X-ray done in the urgent care did not reveal any bone involvement. He started having chills. Finding decided to come in. He has significantly decreased sensation in the feet. Pain has been present in the foot now for last few days. Admitted with acute cellulitis and abscess of the left foot. Possibly from infected callus. Started IV vancomycin. Vascular surgery and ID consulted. underwent abscess removal of the left foot yesterday. Rather extensive. also had to have left total removed and the metatarsal bone removed. Cultures positive for Streptococcus agalactiae group B and multiple organisms. PICC line placed. Wound care was done by Dr. He. Today: Patient be getting outpatient Rocephin 2 g daily and Flagyl for 4 weeks. Local wound care with Santyl. And moist dressing. Patient will follow-up with Dr. He from vascular Dr. Agustin from ID. Also getting a boot. Wound VAC. Care was discussed with the patient nurse. Discussion and discharge planning more than 35 minutes Consultation: Dr. Agustin from ID Dr. He from vascular Past medical history to include: Diabetes, peripheral neuropathy, L3-L4 herniated disc Social history: Lives alone with 2 daughters. Does not smoke or drink alcohol. Family history: Reviewed, noncontributory to presentation Physical examination: VITAL SIGNS: 97.9, 91, 17, 1 tube 63, 96% room air GENERAL: Reclining in bed, awake, comfortable EYES: Pupils equal. Conjunctiva normal. NECK: JVD not raised; masses not palpable. HEART: First and second heart sounds are normal; no edema. LUNGS: Respiratory rate normal; clear to auscultation. ABDOMEN: Soft, nontender, liver spleen not palpable, no masses palpable. PSYCH: Alert and oriented x3; mood and affect normal. NEUROLOGICAL: Cranial nerves grossly intact; no facial asymmetry, power grossly intact. Decreased sensation distally. EXTREMITIES: Left foot in a dressing INVESTIGATIONS, reviewed in the clinical context: September 17: White count 6.18 globin 13.9 potassium 4.6 creatinine 0.62 albumin 2.8 September 15: Potassium 4.6 BUN 25 crit 0.75. Accu-Cheks 170, 167 Wound culture growing Streptococcus agalactiae group B, and other organisms September 14: White count 13.4 hemoglobin 15.8 potassium 4.9 creatinine 0.76 White count 18.8 hemoglobin 17 platelets 199 sodium 133 potassium 4.9. 25 creatinine 0.87 bicarbonate 14 blood glucose 260 CRP 23.8 Coronavirus [PCR]: Not detected Assessment and plan: -Left foot abscess likely from infected callus, secondary to diabetes. Ray- amputation of the left fifth toe that includes right metatarsal of the fifth toe and excision of all the devitalized tissue. Abscess drained. Cultures positive for Streptococcus agalactiae group B, and other organisms. On IV Unasyn. Local wound care. Nonweightbearing. Patient be discharged on IV ceftriaxone and Flagyl for 4 weeks. -Diabetes mellitus type 2, uncontrolled with hyperglycemia Jardiance 10 mg daily, Glucophage thousand milligrams twice a day, trajenta 5 mg daily. Follow Accu-Cheks. -Diabetic peripheral neuropathy Lyrica 150 mg 3 times a day -Essential hypertension Lisinopril hydrochlorothiazide 10/12.5 daily at bedtime -Metabolic acidosis Sodium bicarbonate 3 times a day -Chronic lumbar L3-L4 herniated disc Pain control as needed -Hypoalbuminemia, acute phase reactant Disposition: Home Plan - Discharge Summary Discharge Rx Participant: No New Discharge Prescriptions: New Lisinopril-Hctz 10-12.5 mg [Zestoretic 10-12.5] 1 each PO HS #30 tab metroNIDAZOLE [Flagyl] 500 mg PO Q8HR #90 tab cefTRIAXone [Rocephin] 2 gm IVPB Q24H #30 each Continue sitaGLIPtin [Januvia] 100 mg PO DAILY Empagliflozin [Jardiance] 10 mg PO DAILY metFORMIN HCL [Glucophage] 1,000 mg PO BID Pregabalin [Lyrica] 150 mg PO TID Indomethacin [Indocin] 50 mg PO BID PRN PRN Reason: gout HYDROcodone/APAP 10-325MG [[place] 10-325] 1 tab PO DAILY PRN PRN Reason: Pain traMADol HCL 100 mg PO TID Discontinued Lisinopril [Prinivil] 10 mg PO DAILY Lidocaine 5% Patch [Lidoderm] 2 patch TRANSDERM DAILY PRN PRN Reason: foot pain Amoxic-Pot Clav 875-125Mg [Augmentin 875-125] 1 tab PO BID Ciprofloxacin HCl [Cipro] 500 mg PO BID Discharge Medication List Empagliflozin [Jardiance] 10 mg PO DAILY 09/13/21 [History] HYDROcodone/APAP 10-325MG [[place] 10-325] 1 tab PO DAILY PRN 09/13/21 [History] Indomethacin [Indocin] 50 mg PO BID PRN 09/13/21 [History] Pregabalin [Lyrica] 150 mg PO TID 09/13/21 [History] metFORMIN HCL [Glucophage] 1,000 mg PO BID 09/13/21 [History] sitaGLIPtin [Januvia] 100 mg PO DAILY 09/13/21 [History] traMADol HCL 100 mg PO TID 09/13/21 [History] Lisinopril-Hctz 10-12.5 mg [Zestoretic 10-12.5] 1 each PO HS #30 tab 09/20/21 [Rx] cefTRIAXone [Rocephin] 2 gm IVPB Q24H #30 each 09/20/21 [Rx] metroNIDAZOLE [Flagyl] 500 mg PO Q8HR #90 tab 09/20/21 [Rx] Follow up Appointment(s)/Referral(s): Fidencio Sepulveda DO [Primary Care Provider] - 09/22/21 2:00 pm [facility], [NON-STAFF] - 1 Week [facility] [NON-STAFF] - 1 Week [facility], [REFERRING] - 1 Week Bean Price MD [STAFF PHYSICIAN] - 09/30/21 10:00 am Brooke Su MD [STAFF PHYSICIAN] - 10/11/21 1:30 pm Patient Instructions/Handouts: Incision and Drainage (DC), Toe Amputation (DC) Activity/Diet/Wound Care/Special Instructions: wound care with santyl followed by moist dressing change daily , follow up with Dr su in wound care call [phone] to make an appointment to see DR. PRICE ONLY PER HIS REQUEST HE IS IN THE WOUND CARE OFFICE ON MONDAYS. Off loading shoe/boot order sent to [facility] [phone].
== END 2021-09-20 19:30 | disposition home health service (06) | DRG 617 ==
LOC: EC 10:23 → 5NMEDONC 13:13
PROVIDERS: ADMIT Hospitalist; ATTEND Hospitalist
PROC: 0Y6Y0Z0 Detachment at Left 5th Toe, Complete, Open Approach (ICD-10-PCS; principal; 2021-09-14 09:45)
PROC: 02HV33Z Insertion of Infusion Device into Superior Vena Cava, Percutaneous Approach (ICD-10-PCS; 2021-09-20)
DX: E11.621 Type 2 diabetes mellitus with foot ulcer (principal); E11.52 Type 2 diabetes mellitus with diabetic peripheral angiopathy with gangrene; E87.2 Acidosis; L02.612 Cutaneous abscess of left foot; L03.116 Cellulitis of left lower limb; E11.42 Type 2 diabetes mellitus with diabetic polyneuropathy; E11.628 Type 2 diabetes mellitus with other skin complications; E11.65 Type 2 diabetes mellitus with hyperglycemia; E88.09 Other disorders of plasma-protein metabolism, not elsewhere classified; I10 Essential (primary) hypertension; L97.529 Non-pressure chronic ulcer of other part of left foot with unspecified severity; M51.26 Other intervertebral disc displacement, lumbar region; Z20.822 Contact with and (suspected) exposure to COVID-19; Z79.2 Long term (current) use of antibiotics; Z79.84 Long term (current) use of oral hypoglycemic drugs; Z79.899 Other long term (current) drug therapy
CPT/HCPCS: 36415; 36573; 80048; 80053; 80202; 85025; 85652; 86140; 87040; 87070; 87075; 87077; 87186; 87205; 87635; 96374; 96375; 99284

== ENCOUNTER 2021-10-06 12:13 | Emergency (ER) | payer BC ==
[2021-10-06 12:35] VITALS: PULSE 0; RESP 0
--- NOTE | 2021-10-06 13:16 | ED ---
General Adult HPI - General Chief complaint: Cardiac Arrest/CPR Stated complaint: KRYSTEN Source: EMS, RN notes reviewed, old records reviewed Mode of arrival: EMS Limitations: physical limitation - History of Present Illness Initial comments: 56-year-old male who presents as out of Hospital cardiac arrest. Patient was found by bystanders outside of his home unknown down time. EMS had been contacted and CPR was started by bystanders. The estimated an approximate downtime of 15 minutes prior to EMS arrival. Patient was intubated by paramedics CPR was continued, the patient was placed on the German device and received a total of 7 rounds of epinephrine prior to arrival at the hospital. He was in PEA arrest the entire time with no spontaneous respirations, and no return of spontaneous circulation at any point during the resuscitation efforts. Patient does have a medical history of diabetes and has a wound VAC on the left foot. - Related Data Home Medications Medication Instructions Recorded Confirmed Empagliflozin [Jardiance] 10 mg PO DAILY 09/13/21 09/13/21 HYDROcodone/APAP 10-325MG [[place] 1 tab PO DAILY PRN 09/13/21 09/13/21 10-325] Indomethacin [Indocin] 50 mg PO BID PRN 09/13/21 09/13/21 Pregabalin [Lyrica] 150 mg PO TID 09/13/21 09/13/21 metFORMIN HCL [Glucophage] 1,000 mg PO BID 09/13/21 09/13/21 sitaGLIPtin [Januvia] 100 mg PO DAILY 09/13/21 09/13/21 traMADol HCL 100 mg PO TID 09/13/21 09/13/21 Previous Rx's Medication Instructions Recorded Lisinopril-Hctz 10-12.5 mg 1 each PO HS #30 tab 09/20/21 [Zestoretic 10-12.5] cefTRIAXone [Rocephin] 2 gm IVPB Q24H #30 each 09/20/21 metroNIDAZOLE [Flagyl] 500 mg PO Q8HR #90 tab 09/20/21 Allergies Allergy/AdvReac Type Severity Reaction Status Date / Time No Known Allergies Allergy Verified 10/06/21 12:35 Review of Systems ROS Statement: Those systems with pertinent positive or pertinent negative responses have been documented in the HPI. ROS Other: All systems not noted in ROS Statement are negative. Past Medical History Past Medical History: Diabetes Mellitus Additional Past Medical History / Comment(s): L3-4-5 Bulging discs, neuropathy History of Any Multi-Drug Resistant Organisms: None Reported Past Surgical History: No Surgical Hx Reported Past Psychological History: No Psychological Hx Reported Smoking Status: Never smoker Past Alcohol Use History: None Reported Past Drug Use History: None Reported General Exam Limitations: no limitations General appearance: other (No spontaneous movement, sim and cyanotic) Eye exam: Present: other (Pupils are 1 cm fixed and dilated) ENT exam: Present: other (Doc tube placed by paramedics) Respiratory exam: Present: other (Breath sounds with BVM no spontaneous respirations) Cardiovascular Exam: Present: other (No spontaneous heart sounds) GI/Abdominal exam: Present: distended Extremities exam: Present: other (IO placed in the right lower extremity) Neurological exam: Present: other (No corneal reflex, no gag reflex, no spontaneous movement) Skin exam: Present: cyanosis, pallor, mottled Course Vital Signs 10/06/21 12:28 Pulse Rate 0 L Respiratory 0 L Rate Medical Decision Making - Medical Decision Making 56-year-old male presenting in PEA cardiac arrest prolonged downtime upwards of over an hour prior to arrival. Pupils are fixed and dilated is cyanotic, sim and cool to the touch. He is apneic with no spontaneous heart sounds. Bedside ultrasound is performed which shows a non-perfusing cardiac output very subtle wall motion. Resuscitative efforts were continued according to ACLS protocol. Patient had laboratory studies drawn 2 days ago which did show an elevated potassium and therefore will sodium bicarb and calcium chloride were administered without change in rhythm. Ultimately time of was called at 1226. I did discuss case with Dr. Sepulveda the patient's primary care physician and with Lisbet the medical radiation tech. Disposition Clinical Impression: Cardiopulmonary arrest Disposition: Condition: Undetermined Is patient prescribed a controlled substance at d/c from ED?: No Referrals: Fidencio Sepulveda DO [Primary Care Provider] - 1-2 days Time of Disposition: 12:26 Preliminary Cause of : Cardiopulmonary arrest
== END 2021-10-06 17:09 | disposition expired ==
LOC: EC 12:13
DX: I46.9 Cardiac arrest, cause unspecified (principal); E11.9 Type 2 diabetes mellitus without complications; Z79.84 Long term (current) use of oral hypoglycemic drugs
CPT/HCPCS: 99285